=== PATIENT | female | born 1930 | race Caucasian/White ===

== ENCOUNTER 2019-08-06 06:27 | Emergency (ER) | payer OTHER ==
[2019-08-06 07:02] LABS: Absolute Lymphocytes (CBC) 1.1 K/uL (0.7-4.9); Basophils % 0.8 % (0-1.3); Hematocrit 38.4 % (36.0-45.0); Lymphocytes % 13.9 % (15.3-44.8); MPV 7.9 fL (7.6-11.3); RBC Red Blood Cell Count 4.27 M/uL (3.86-4.86)
[2019-08-06 07:07] LABS: Protime INR 0.94
[2019-08-06 07:22] LABS: Albumin 3.8 g/dL (3.4-5.0); Bilirubin Direct 0.2 mg/dL (0-0.2); Bilirubin Total 0.5 mg/dL (0.2-1.0); Magnesium 2.5 mg/dL (1.8-2.4); Potassium 4.3 mmol/L (3.5-5.1)
--- NOTE | 2019-08-06 08:09 | RAD REPORT ---
EXAM DESCRIPTION: CT - Head Brain Wo Cont - 08/06/2019 7:38 am CLINICAL HISTORY: MENTAL STATUS CHANGE Headache, drowsiness COMPARISON: Head Brain Wo Cont dated 11/04/2017; Head Brain Wo Cont dated 10/21/2017 TECHNIQUE: All CT scans are performed using dose optimization technique as appropriate and may inclu de automated exposure control or mA/KV adjustment according to patient size. 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 The paranasal sinuses and mastoids are clear. The calvarium is intact. IMPRESSION: No acute intracranial abnormality.
--- NOTE | 2019-08-06 08:17 | RAD REPORT ---
EXAM DESCRIPTION: RAD - Chest Single View - 08/06/2019 7:06 am CLINICAL HISTORY: COUGH Chest pain. COMPARISON: Chest Single View dated 01/16/2018; Chest Single View dated 10/27/2017; Abdomen 1 View ([facility]) dated 10/25/2017; Chest Single View dated 10/21/2017 FINDINGS: Portable technique limits examination quality. The lungs are grossly clear. The right hemidiaphragm is mildly elevated, chronic. The heart is modera tely enlarged in size. No displaced fractures.
[2019-08-06 08:24] LABS: Urine Bacteria NONE SEEN /HPF (<20); Urine Culture Reflex Order NOT NEEDED; Urine Mucus SLIGHT /HPF (NONE SEEN); Urine RBC <5 /HPF (NONE SEEN)
--- NOTE | 2019-08-06 09:48 | ER ---
Nurse's Notes [facility] Name: Aurora Hendrickson Age: 89 yrs Sex: Female : 1930 Arrival Date: 08/06/2019 Time: 06:34 Bed 6 Private MD: Diagnosis: Altered mental status, unspecified;Dementia in other diseases classified elsewhere with behavioral disturbance Presentation: 08/06 06:43 Presenting complaint: Child states: Daughter states receiving phone call from [facility] [address], where patient resides; Stated patient was combative with staff, seemed confused, unknown if patient may be experiencing UTI; Daughter states she was told that patient was uncooperative with staff. Transition of care: [facility]. Onset of symptoms was August 06, 2019. Risk Assessment: Do you want to hurt yourself or someone else? Patient reports no desire to harm self or others. Initial Sepsis Screen: Does the patient meet any 2 criteria? No. Patient's initial sepsis screen is negative. Does the patient have a suspected source of infection? No. Patient's initial sepsis screen is negative. Care prior to arrival: None. 06:43 Method Of Arrival: Wheelchair lp1 06:43 Acuity: SHAREE 3 lp1 Triage Assessment: 06:54 General: Appears in no apparent distress. Behavior is calm. Pain: Denies pain. Neuro: lp1 Level of Consciousness is awake, obeys commands, confused, Oriented to person, place. Historical: - Allergies: 06:54 Demerol; lp1 06:54 Zofran; lp1 - Home Meds: 06:54 acetaminophen-codeine 300-30 mg Oral tab 1 tab every 6 hours [Active]; alprazolam 0.25 lp1 mg Oral tab twice a day [Active]; alprazolam 0.5 mg Oral tab every 6 hours [Active]; aspirin 325 mg oral TbEC once daily [Active]; atorvastatin Calcium 1 tab PO every night at bedtime 40 mg nightly [Active]; diltiazem HCl 30 mg oral tab 1 tab daily [Active]; furosemide 20 mg Oral tab 1 tab once daily [Active]; gabapentin 100 mg oral cap 1 caps 3 times per day [Active]; lactulose 10 gram/15 mL (15 mL) Oral soln 30 mL Every Other Day [Active]; levothyroxine 25 mcg tab 1 tab once daily [Active]; lisinopril 5 mg oral tab 1 tab once daily [Active]; magnesium oxide 400 mg Oral tab twice a day [Active]; meclizine 25 mg Oral tab 1 tab 4 times per day [Active]; melatonin 3 mg oral tab nightly [Active]; metoprolol tartrate 25 mg Oral tab 1 tab 2 times per day [Active]; morphine 15 mg Oral TbER 1 tab daily [Active]; nitroglycerin 0.4 mg SL subl 1 tab every 5 minutes [Active]; Protonix 40 mg Oral TbEC 1 tab once daily [Active]; potassium chloride 10 mEq Oral TbER 1 tab once daily [Active]; topiramate 25 mg oral tab nightly [Active]; Vitamin B-6 50 mg Oral tab daily [Active]; - PMHx: 06:54 Constipation; Chronic pain; Dementia; GERD; Hypertension; Depression; Hyperlipidemia; lp1 - PSHx: 06:54 Back surgery; lp1 - Immunization history:: Adult Immunizations up to date. - Social history:: Smoking status: Patient/guardian denies using tobacco. - Ebola Screening: : No symptoms or risks identified at this time. Screenin:58 Abuse screen: Denies threats or abuse. Denies injuries from another. Nutritional rr5 screening: No deficits noted. Tuberculosis screening: No symptoms or risk factors identified. Fall Risk Secondary diagnosis (15 points) dementia, IV access (20 points). Mental Status- Overestimates/Forgets Limitations (15 pts.). Total Matos Fall Scale indicates High Risk Score (45 or more points). Fall prevention measures have been instituted. Side Rails Up X 2 Placed Close to Nursing Station Frequent Obs/Assessments Occuring Family Present and informed to notify staff if the need to leave the bedside As available patient and family educated on Fall Prevention Program and Strategies. Assessment: 07:10 General: Appears in no apparent distress. comfortable, well developed, Behavior is sv cooperative, appropriate for age, anxious. Pain: Denies pain. Neuro: Level of Consciousness is awake, alert, obeys commands, confused, Oriented to person, place, Moves all extremities. Full function Speech is normal. Cardiovascular: Patient's skin is warm and dry. Pulses are 3+ in right radial artery and left radial artery Edema is 2+ to left midcalf and right midcalf. Respiratory: Respiratory effort is even, unlabored, Respiratory pattern is regular, symmetrical. Derm: Skin is pink, warm \T\ dry. Musculoskeletal: Range of motion: intact in all extremities. 08:10 Reassessment: Patient appears in no apparent distress at this time. No changes from sv previously documented assessment. Patient and/or family updated on plan of care and expected duration. Pain level reassessed. Patient is alert, oriented x 3, equal unlabored respirations, skin warm/dry/pink. 09:04 Reassessment: pt assisted to bed kimbrough, diaper changed, linens changed, pt transported to [facility] via stretcher, daughter remains at bedside. 10:15 Reassessment: Patient appears in no apparent distress at this time. No changes from sv previously documented assessment. Patient and/or family updated on plan of care and expected duration. Pain level reassessed. Patient is alert, oriented x 3, equal unlabored respirations, skin warm/dry/pink. Vital Signs: 06:45 BP 126 / 60; Pulse 89; Resp 18; Temp 98.1; Pulse Ox 98% on R/A; Weight 96.16 kg; Pain lp1 0/10; 07:20 BP 123 / 96; Pulse 74; Resp 16; Pulse Ox 96% on R/A; sv 08:10 BP 107 / 36; Pulse 68; Resp 18; Pulse Ox 97% ; sv 08:56 BP 123 / 67; Pulse 84; Resp 18; Pulse Ox 98% ; sv ED Course: 06:34 Patient arrived in ED. em1 06:35 Gunner Watts PA is PHCP. jr8 06:35 Geovanny Lee MD is Attending Physician. jr8 06:45 Triage completed. lp1 06:46 Arm band placed on. lp1 06:55 Patient has correct armband on for positive identification. Pulse ox on. NIBP on. lp1 06:55 Inserted saline lock: 20 gauge in left forearm, using aseptic technique. Blood rr5 collected. 07:07 XRAY Chest (1 view) In Process Unspecified. EDMS 07:16 Maritza Adan, ALONSO is Primary Nurse. sv 07:16 Straight cath inserted, using sterile technique, 16 Fr. Specimen obtained. Returned sv clear yellow urine. Patient tolerated well. 07:21 Awaiting lab results, Awaiting radiology results. Awaiting re-evaluation by ER provider.sv 07:[address] via stretcher. sv 07:25 Urine Dipstick--Ancillary (enter results) Sent. sv 07:39 CT Head Brain wo Cont In Process Unspecified. EDMS 09:28 US Extremity Venous W Compression Pravin In Process Unspecified. EDMS 10:15 No provider procedures requiring assistance completed. IV discontinued, intact, sv bleeding controlled, No redness/swelling at site. Pressure dressing applied. Administered Medications: No medications were administered Output: 07:17 Urine: 200ml (Straight Cath); Total: 200ml. sv Outcome: 09:47 Discharge ordered by . jr8 10:16 Discharged to home via wheelchair, with family. sv 10:16 Condition: stable 10:16 Discharge instructions given to patient, family, Instructed on discharge instructions, follow up and referral plans. Demonstrated understanding of instructions, follow-up care. 10:16 Patient left the ED. sv Signatures: Dispatcher [employer] Maritza Collier RN RN sv Mary Grace Waldrop, RN Pedrito Buchanan em1 Breanna Vinson RN RN lp1 Gunner Watts PA PA jr8 Julius Whitley, RN RN rr5
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
--- NOTE | 2019-08-06 09:57 | RAD REPORT ---
EXAM DESCRIPTION: US - Extrem Venous W Compress Pravin - 08/06/2019 9:44 am CLINICAL HISTORY: Swelling;Pain Bilateral leg edema and swelling. COMPARISON: Extremity Venous Uni Ltd dated 12/30/2018 TECHNIQUE: Real-time sonographic interrogation of the left and right lower extremity deep venous sys tems was performed. FINDINGS: Normal compressibility, flow augmentation, phasic flow and spontaneous flow is identified in both the left and right lower extremity deep venous systems. IMPRESSION: No sonographic evidence of left or right lower extremity deep venous thrombosis.
[2019-08-06 10:31] VITALS: TEMP 98.1
[2019-08-06 10:34] VITALS: BP 123/67; O2SAT 98
[2019-08-06 15:21] LABS: Urine Blood NEGATIVE (NEG); Urine Glucose NEGATIVE (NEG); Urine Protein NEGATIVE (NEG); Urine Specific Gravity 1.015 (1.005-1.030)
--- NOTE | 2019-08-07 10:36 | EKG ---
Test Date: 2019-08-06 Test Time: 07:02:14 Senior Product Development Scientist: RR MEASUREMENT RESULTS: Intervals: Rate: 76 NM: 158 QRSD: 70 QT: 380 QTc: 427 Jay: P: 74 NM: 158 QRS: 22 T: 57 INTERPRETIVE STATEMENTS: Sinus rhythm with premature atrial complexes Low voltage QRS Cannot rule out Anterior infarct, age undetermined Abnormal ECG Compared to ECG 01/16/2018 07:34:41 Atrial premature complex(es) now present Myocardial infarct finding still present Electronically Signed On 08-07-19 10:32:02 CDT by Caleb Benitez
== END 2019-08-06 10:16 | disposition home or self-care (01) ==
LOC: ER 06:27
DX: F03.90 Unspecified dementia, unspecified severity, without behavioral disturbance, psychotic disturbance, mood disturbance, and anxiety (principal); K21.9 Gastro-esophageal reflux disease without esophagitis; I10 Essential (primary) hypertension; E78.5 Hyperlipidemia, unspecified; Z88.6 Allergy status to analgesic agent
CPT/HCPCS: 36415; 51702; 70450; 71045; 80048; 80076; 81003; 81015; 83735; 83880; 85025; 85610; 93005; 93970; 99284

== ENCOUNTER 2019-12-18 05:45 | Inpatient (IN) | payer OTHER ==
[2019-12-18] MEDS ORDERED: PROMETHAZINE INJ 25 MG/ML AMP ONE (06:15)
[2019-12-18] MEDS ORDERED: FAMOTIDINE 20 MG/2 ML VIAL IV ONE (06:16)
[2019-12-18] MEDS ORDERED: MORPHINE 2 MG/ML SYR ONE (06:16)
[2019-12-18] MEDS ORDERED: METRONIDAZOLE 500mg IVPB 500 MG/100 ML BAG IV ONE ×3 (06:42→15:47)
[2019-12-18] MEDS ORDERED: Ciprofloxacin 200mg IV 200 MG/100 ML IV.SOLN. IV ONE (06:42)
--- NOTE | 2019-12-18 06:55 | EDPHYS ---
Physician Documentation [facility] Name: Aurora Hendrickson Age: 89 yrs Sex: Female : 1930 Arrival Date: 12/18/2019 Time: 05:[address] Private MD: Omar Luis HPI: 12/18 06:07 This 89 yrs old Female presents to ER via EMS with complaints of Abdominal sonia Pain. 06:07 The patient presents with abdominal pain in the upper abdomen, in the lower abdomen. sonia Onset: The symptoms/episode began/occurred 1 day(s) ago. The symptoms do not radiate. Associated signs and symptoms: none. The symptoms are described as constant, crampy. Severity of pain: At its worst the pain was moderate severe in the emergency department the pain is unchanged. The patient has not experienced similar symptoms in the past. Historical: - Allergies: 05:59 Demerol; bb 05:59 Zofran; bb - Home Meds: 05:59 alprazolam 0.5 mg oral tab 1 tab [Active]; acetaminophen-codeine 300-30 mg Oral tab 1 bb tab every 6 hours [Active]; aspirin 325 mg Oral TbEC once daily [Active]; atorvastatin Calcium 1 tab PO every night at bedtime 40 mg nightly [Active]; diltiazem HCl 30 mg Oral tab 1 tab daily [Active]; furosemide 20 mg Oral tab 1 tab once daily [Active]; gabapentin 100 mg Oral cap 1 caps 3 times per day [Active]; lactulose 10 gram/15 mL (15 mL) Oral soln 30 mL Every other day [Active]; levothyroxine 25 mcg tab 1 tab once daily [Active]; lisinopril 5 mg Oral tab 1 tab once daily [Active]; magnesium oxide 400 mg Oral tab twice a day [Active]; meclizine 25 mg Oral tab 1 tab 4 times per day [Active]; metoprolol tartrate 25 mg Oral tab 1 tab 2 times per day [Active]; metoprolol succinate oral oral [Active]; morphine 15 mg Oral TbER 1 tab daily [Active]; nitroglycerin 0.4 mg SL subl 1 tab every 5 minutes [Active]; Protonix 40 mg Oral TbEC 1 tab once daily [Active]; potassium chloride 10 mEq Oral TbER 1 tab once daily [Active]; topiramate 25 mg Oral tab nightly [Active]; Vitamin B-6 50 mg Oral tab daily [Active]; tizanidine oral oral [Active]; - PMHx: 05:59 Chronic pain; constipation; Dementia; Depression; GERD; Hyperlipidemia; Hypertension; bb - Immunization history:: Adult Immunizations up to date. - Coronavirus screen:: The patient has NOT traveled to [place], [place], or [place] in the past 14 days. Proceed with normal triage process as indicated. - Social history:: Smoking status: unknown. - Family history:: not pertinent. - Ebola Screening: : No symptoms or risks identified at this time. ROS: 06:07 Constitutional: Negative for fever, chills, and weight loss, Eyes: Negative for injury, sonia pain, redness, and discharge, ENT: Negative for injury, pain, and discharge, Neck: Negative for injury, pain, and swelling, Cardiovascular: Negative for chest pain, palpitations, and edema, Respiratory: Negative for shortness of breath, cough, wheezing, and pleuritic chest pain, Back: Negative for injury and pain, : Negative for injury, bleeding, discharge, and swelling, MS/Extremity: Negative for injury and deformity, Skin: Negative for injury, rash, and discoloration, Neuro: Negative for headache, weakness, numbness, tingling, and seizure, Psych: Negative for depression, anxiety, suicide ideation, homicidal ideation, and hallucinations, Allergy/Immunology: Negative for hives, rash, and allergies, Endocrine: Negative for neck swelling, polydipsia, polyuria, polyphagia, and marked weight changes, Hematologic/Lymphatic: Negative for swollen nodes, abnormal bleeding, and unusual bruising. 06:07 Abdomen/GI: Positive for abdominal pain, abdominal cramps, abdominal distension, of the right upper quadrant, left upper quadrant, right lower quadrant and left lower quadrant. Exam: 06:07 Constitutional: This is a well developed, well nourished patient who is awake, alert, sonia and in no acute distress. Head/Face: Normocephalic, atraumatic. Eyes: Pupils equal round and reactive to light, extra-ocular motions intact. Lids and lashes normal. Conjunctiva and sclera are non-icteric and not injected. Cornea within normal limits. Periorbital areas with no swelling, redness, or edema. ENT: Nares patent. No nasal discharge, no septal abnormalities noted. Tympanic membranes are normal and external auditory canals are clear. Oropharynx with no redness, swelling, or masses, exudates, or evidence of obstruction, uvula midline. Mucous membranes moist. Neck: Trachea midline, no thyromegaly or masses palpated, and no cervical lymphadenopathy. Supple, full range of motion without nuchal rigidity, or vertebral point tenderness. No Meningismus. Chest/axilla: Normal chest wall appearance and motion. Nontender with no deformity. No lesions are appreciated. Cardiovascular: Regular rate and rhythm with a normal S1 and S2. No gallops, murmurs, or rubs. Normal PMI, no JVD. No pulse deficits. Respiratory: Lungs have equal breath sounds bilaterally, clear to auscultation and percussion. No rales, rhonchi or wheezes noted. No increased work of breathing, no retractions or nasal flaring. Back: No spinal tenderness. No costovertebral tenderness. Full range of motion. Female : Normal external genitalia. Skin: Warm, dry with normal turgor. Normal color with no rashes, no lesions, and no evidence of cellulitis. MS/ Extremity: Pulses equal, no cyanosis. Neurovascular intact. Full, normal range of motion. Neuro: Awake and alert, GCS 15, oriented to person, place, time, and situation. Cranial nerves II-XII grossly intact. Motor strength 5/5 in all extremities. Sensory grossly intact. Cerebellar exam normal. Normal gait. Psych: Awake, alert, with orientation to person, place and time. Behavior, mood, and affect are within normal limits. 06:07 Abdomen/GI: Inspection: distension, Bowel sounds: normal, Palpation: moderate abdominal tenderness, in the right upper quadrant, left upper quadrant, right lower quadrant and left lower quadrant. Vital Signs: 05:59 BP 118 / 96; Pulse 69; Resp 18 S; Temp 98.1(O); Pulse Ox 96% on R/A; Weight 100 kg (R); bb Pain 6/10; 07:31 BP 96 / 45; Pulse 51; Resp 17; Pulse Ox 96% on R/A; tw2 08:50 BP 139 / 63; Pulse 65; Resp 22; Pulse Ox 96% on R/A; tw2 09:50 BP 137 / 66; Pulse 51; Resp 17; Pulse Ox 96% on R/A; tw2 10:28 BP 134 / 60; Pulse 43; Resp 16; Pulse Ox 96% on R/A; tw2 Procedures: 08:29 Central Line: the site was prepped with Betadine, in sterile fashion, a triple lumen [facility] catheter was inserted, in the right femoral vein, in 3 attempts. placement was verified, by blood return, the site was dressed with Tegaderm, using sterile technique, the patient tolerated the procedure, well. MDM: 05:51 Patient medically screened. [facility] 06:10 Data reviewed: vital signs, nurses notes, lab test result(s), EKG, radiologic studies, [facility] CT scan, plain films. 12/18 06:07 Order name: Basic Metabolic Panel; Complete Time: 10:33 [facility] 12/18 06:07 Order name: CBC with Diff; Complete Time: 10:33 [facility] 12/18 06:07 Order name: LFT's; Complete Time: 10:33 [facility] 12/18 06:07 Order name: Magnesium; Complete Time: 10:33 [facility] 12/18 06:07 Order name: NT PRO-BNP; Complete Time: 10:33 [facility] 12/18 06:07 Order name: PT-INR; Complete Time: 08:57 [facility] 12/18 06:07 Order name: Troponin (emerg Dept Use Only); Complete Time: 10:33 [facility] 12/18 06:07 Order name: Lipase; Complete Time: 10:34 [facility] 12/18 06:24 Order name: Stool Culture [facility] 12/18 06:24 Order name: Fecal Leukocyte Stain [facility] 12/18 07:44 Order name: CBC with Automated Diff [facility] 12/18 07:44 Order name: CBC with Automated Diff [facility] 12/18 07:44 Order name: Comprehensive Metabolic Panel [facility] 12/18 07:44 Order name: Comprehensive Metabolic Panel [facility] 12/18 07:44 Order name: Lactate [facility] 12/18 07:44 Order name: Lactate [facility] 12/18 07:44 Order name: Magnesium [facility] 12/18 07:44 Order name: Magnesium [facility] 12/18 07:44 Order name: Procalcitonin [facility] 12/18 07:44 Order name: Procalcitonin; Complete Time: 10:34 [facility] 12/18 07:44 Order name: Protime (+INR) [facility] 12/18 07:44 Order name: Protime (+INR) [facility] 12/18 07:44 Order name: PTT, Activated Partial Thromb [facility] 12/18 07:44 Order name: PTT, Activated Partial Thromb [facility] 12/18 07:47 Order name: Urinalysis [facility] 12/18 08:25 Order name: Type And Screen [facility] 12/18 08:25 Order name: Lactate [facility] 12/18 08:32 Order name: Urine Culture [facility] 12/18 08:40 Order name: Urine Dipstick--Ancillary (enter results) 12/18 09:06 Order name: Lactate; Complete Time: 10:34 [facility] 12/18 06:07 Order name: XRAY Chest (1 view); Complete Time: 08:57 [facility] 12/18 06:07 Order name: EKG; Complete Time: 06:07 [facility] 12/18 06:07 Order name: Cardiac monitoring; Complete Time: 06:58 [facility] 12/18 06:07 Order name: EKG - Nurse/Tech; Complete Time: 06:58 [facility] 12/18 06:07 Order name: IV Saline Lock; Complete Time: 08:49 [facility] 12/18 06:07 Order name: Labs collected and sent; Complete Time: 08:49 [facility] 12/18 06:07 Order name: O2 Per Protocol; Complete Time: 06:09 [facility] 12/18 06:07 Order name: O2 Sat Monitoring; Complete Time: 06:09 [facility] 12/18 06:07 Order name: Suresh; Complete Time: 06:57 [facility] 12/18 07:34 Order name: CT ANGIO ABD/PELVIS W CONTRAST; Complete Time: 10:34 [facility] 12/18 07:44 Order name: CONS Physician Consult [facility] 12/18 07:44 Order name: NPO [facility] 12/18 08:25 Order name: Central Line Kit; Complete Time: 08:42 [facility] 12/18 09:21 Order name: Manual Differential; Complete Time: 10:33 [facility] 12/18 09:40 Order name: Type and Screen [facility] 12/18 09:41 Order name: Urine Dipstick-Ancillary; Complete Time: 10:34 EDMS Administered Medications: 08:30 Drug: Pepcid 20 mg Route: IVP; Site: right forearm; tw2 08:51 Follow up: Response: No adverse reaction tw2 08:32 Drug: Phenergan 12.5 mg Route: IVP; Site: right femoral; tw2 09:00 Follow up: Response: No adverse reaction; Nausea is decreased tw2 08:34 Drug: morphine 2 mg Route: IVP; Site: right femoral; tw2 09:00 Follow up: Response: No adverse reaction; Pain is decreased; RASS: Drowsy (-1) tw2 08:42 Drug: ProTONIX 80 mg Route: IVP; Site: right femoral; tw2 09:26 Follow up: Response: No adverse reaction tw2 08:45 Drug: Rocephin 1 grams Route: IV; Rate: per protocol; Site: right femoral; tw2 08:50 Follow up: Response: No adverse reaction; IV Status: Completed infusion tw2 08:48 Drug: Flagyl 500 mg Volume: 100 ml; Route: IVPB; Rate: 200 ml/hr; Infused Over: 30 tw2 mins; Site: right femoral; 09:20 Follow up: Response: No adverse reaction; IV Status: Completed infusion tw2 08:50 Drug: NS 0.9% 1000 ml Route: IV; Rate: 125 ml/hr; Site: right femoral; tw2 10:59 Follow up: IV Status: Infusion continued upon admission tw2 09:06 Drug: Cipro 400 mg Volume: 200 ml; Route: IVPB; Infused Over: 60 mins; Site: right tw2 femoral; 10:10 Follow up: Response: No adverse reaction; IV Status: Completed infusion tw2 10:28 Drug: ProTONIX 8 mg/hr Route: IV; Rate: 25 ml/hr; Site: right femoral; tw2 10:59 Follow up: IV Status: Infusion continued upon admission tw2 Disposition: 12/18/19 06:55 Hospitalization ordered by Zeinab Overton for Inpatient Admission. Preliminary diagnosis are Abdominal tenderness, Diarrhea, unspecified, Dementia in other diseases classified elsewhere, Gastrointestinal hemorrhage, unspecified, Hypotension. - Bed requested for Telemetry/MedSurg (Inpatient). - Status is Inpatient Admission. ss - Condition is Fair. - Problem is new. - Symptoms have improved. UTI on Admission? No Signatures: Dispatcher [employer] Carmela Day RN RN Omar Romero MD MD cha Therrien, Shelly, CLOTH WINDER-C CLOTH WINDER-Csnw Lissy Tee, RN RN bb Bess Jackson RN RN ss Madina Miranda RN RN tw2 Corrections: (The following items were deleted from the chart) 08:28 06:55 Hospitalization Ordered by Zeinab Overton MD for Inpatient Admission. Preliminary [facility] diagnosis is Abdominal tenderness; Diarrhea, unspecified; Dementia in other diseases classified elsewhere. Bed requested for Telemetry/MedSurg (Inpatient). Status is Inpatient Admission. Condition is Fair. Problem is new. Symptoms have improved. UTI on Admission? No. sonia 08:29 08:28 12/18/2019 06:55 Hospitalization Ordered by Zeinab Overton MD for Inpatient soina Admission. Preliminary diagnosis is Abdominal tenderness; Diarrhea, unspecified; Dementia in other diseases classified elsewhere; Gastrointestinal hemorrhage, unspecified. Bed requested for Telemetry/MedSurg (Inpatient). Status is Inpatient Admission. Condition is Fair. Problem is new. Symptoms have improved. UTI on Admission? No. sonia 13:09 08:29 12/18/2019 06:55 Hospitalization Ordered by Zeinab Overton MD for Inpatient ss Admission. Preliminary diagnosis is Abdominal tenderness; Diarrhea, unspecified; Dementia in other diseases classified elsewhere; Gastrointestinal hemorrhage, unspecified; Hypotension. Bed requested for Telemetry/MedSurg (Inpatient). Status is Inpatient Admission. Condition is Fair. Problem is new. Symptoms have improved. UTI on Admission? No. sonia 16:14 13:09 12/18/2019 06:55 Hospitalization Ordered by Zeinab Overton MD for Inpatient dw Admission. Preliminary diagnosis is Abdominal tenderness; Diarrhea, unspecified; Dementia in other diseases classified elsewhere; Gastrointestinal hemorrhage, unspecified; Hypotension. Bed requested for [facility] ER HOLD. Status is Inpatient Admission. Condition is Fair. Problem is new. Symptoms have improved. UTI on Admission? No. ss 18:13 16:14 12/18/2019 06:55 Hospitalization Ordered by Zeinab Overton MD for Inpatient ss Admission. Preliminary diagnosis is Abdominal tenderness; Diarrhea, unspecified; Dementia in other diseases classified elsewhere; Gastrointestinal hemorrhage, unspecified; Hypotension. Bed requested for Telemetry/MedSurg (Inpatient). Status is Inpatient Admission. Condition is Fair. Problem is new. Symptoms have improved. UTI on Admission? No. dw
--- NOTE | 2019-12-18 06:55 | ER ---
Nurse's Notes [facility] Name: Aurora Hendrickson Age: 89 yrs Sex: Female : 1930 Arrival Date: 12/18/2019 Time: 05:[address] Private MD: Diagnosis: Abdominal tenderness;Diarrhea, unspecified;Dementia in other diseases classified elsewhere;Gastrointestinal hemorrhage, unspecified;Hypotension Presentation: 12/18 05:53 Presenting complaint: EMS states: they were toned out for report of pt having abdominal bb pain pt is poor historian does not remember details. Transition of care: patient was not received from another setting of care. Onset of symptoms was December 18, 2019. Risk Assessment: Do you want to hurt yourself or someone else? Patient reports no desire to harm self or others. Initial Sepsis Screen: Does the patient meet any 2 criteria? No. Patient's initial sepsis screen is negative. Does the patient have a suspected source of infection? No. Patient's initial sepsis screen is negative. Care prior to arrival: None. 05:53 Method Of Arrival: EMS: [facility] bb 05:53 Acuity: SHAREE 3 bb Historical: - Allergies: 05:59 Demerol; bb 05:59 Zofran; bb - Home Meds: 05:59 alprazolam 0.5 mg oral tab 1 tab [Active]; acetaminophen-codeine 300-30 mg Oral tab 1 bb tab every 6 hours [Active]; aspirin 325 mg Oral TbEC once daily [Active]; atorvastatin Calcium 1 tab PO every night at bedtime 40 mg nightly [Active]; diltiazem HCl 30 mg Oral tab 1 tab daily [Active]; furosemide 20 mg Oral tab 1 tab once daily [Active]; gabapentin 100 mg Oral cap 1 caps 3 times per day [Active]; lactulose 10 gram/15 mL (15 mL) Oral soln 30 mL Every other day [Active]; levothyroxine 25 mcg tab 1 tab once daily [Active]; lisinopril 5 mg Oral tab 1 tab once daily [Active]; magnesium oxide 400 mg Oral tab twice a day [Active]; meclizine 25 mg Oral tab 1 tab 4 times per day [Active]; metoprolol tartrate 25 mg Oral tab 1 tab 2 times per day [Active]; metoprolol succinate oral oral [Active]; morphine 15 mg Oral TbER 1 tab daily [Active]; nitroglycerin 0.4 mg SL subl 1 tab every 5 minutes [Active]; Protonix 40 mg Oral TbEC 1 tab once daily [Active]; potassium chloride 10 mEq Oral TbER 1 tab once daily [Active]; topiramate 25 mg Oral tab nightly [Active]; Vitamin B-6 50 mg Oral tab daily [Active]; tizanidine oral oral [Active]; - PMHx: 05:59 Chronic pain; constipation; Dementia; Depression; GERD; Hyperlipidemia; Hypertension; bb - Immunization history:: Adult Immunizations up to date. - Coronavirus screen:: The patient has NOT traveled to [place], [place], or [place] in the past 14 days. Proceed with normal triage process as indicated. - Social history:: Smoking status: unknown. - Family history:: not pertinent. - Ebola Screening: : No symptoms or risks identified at this time. Screenin:02 Abuse screen: Denies threats or abuse. Denies injuries from another. Nutritional aa1 screening: No deficits noted. Tuberculosis screening: No symptoms or risk factors identified. Fall Risk None identified. Assessment: 06:02 General: Appears in no apparent distress. uncomfortable, obese, Behavior is aa1 cooperative, appropriate for age, restless. Pain: Complains of pain in abdomen Pain began 2-3 days ago. Is continuous. Neuro: Level of Consciousness is awake, alert, obeys commands, Oriented to person, place, time, situation, Moves all extremities. Respiratory: Airway is patent Respiratory effort is even, unlabored, Respiratory pattern is regular, symmetrical. GI: Abdomen is obese, Bowel sounds diminished in abdomen diffusely Abd is soft X 4 quads Abdomen is tender to palpation X 4 quads. Patient currently denies diarrhea, vomiting. : No signs and/or symptoms were reported regarding the genitourinary system. EENT: No signs and/or symptoms were reported regarding the EENT system. Derm: Skin is intact, is healthy with good turgor, Skin is pink, warm \T\ dry. Musculoskeletal: Circulation, motion, and sensation intact. Capillary refill < 3 seconds. 07:31 Reassessment: Patient appears in no apparent distress at this time. No changes from tw2 previously documented assessment. Patient and/or family updated on plan of care and expected duration. Pain level reassessed. 07:40 Reassessment: Dr. Werner at bedside performing central line at this. tw2 08:22 Reassessment: Central line placement took additional time than anticipated. blood drawn tw2 and sent to lab. pt medicated as ordered. 09:30 Reassessment: Patient appears in no apparent distress at this time. No changes from tw2 previously documented assessment. Patient and/or family updated on plan of care and expected duration. Pain level reassessed. 10:29 Reassessment: Patient appears in no apparent distress at this time. No changes from tw2 previously documented assessment. Patient and/or family updated on plan of care and expected duration. Pain level reassessed. Vital Signs: 05:59 BP 118 / 96; Pulse 69; Resp 18 S; Temp 98.1(O); Pulse Ox 96% on R/A; Weight 100 kg (R); bb Pain 6/10; 07:31 BP 96 / 45; Pulse 51; Resp 17; Pulse Ox 96% on R/A; tw2 08:50 BP 139 / 63; Pulse 65; Resp 22; Pulse Ox 96% on R/A; tw2 09:50 BP 137 / 66; Pulse 51; Resp 17; Pulse Ox 96% on R/A; tw2 10:28 BP 134 / 60; Pulse 43; Resp 16; Pulse Ox 96% on R/A; tw2 ED Course: 05:50 Patient arrived in ED. ds1 05:51 Omar Werner MD is Attending Physician. sonia 05:55 Triage completed. bb 05:59 Arm band placed on Patient placed in an exam room, on a stretcher, on pulse oximetry. bb 06:02 Patient has correct armband on for positive identification. Bed in low position. Call aa1 light in reach. Pulse ox on. NIBP on. Warm blanket given. 06:28 XRAY Chest (1 view) In Process Unspecified. EDMS 06:40 Suresh cath inserted, using sterile technique, 18 Fr., by me, balloon inflated, returned cm6 cloudy urine. Patient tolerated well. 06:54 Zeinab Overton MD is Hospitalizing Provider. sonia 06:58 Missed attempt(s): 22 gauge in left forearm. Bleeding controlled, band aid applied, aa1 catheter tip intact. 07:05 Madina Miranda RN is Primary Nurse. tw2 07:05 Missed attempt(s): 22 gauge in right antecubital area. Bleeding controlled, band aid tw2 applied, catheter tip intact. 07:25 Missed attempt(s): 22 gauge in left wrist. jl7 07:30 Missed attempt(s): 24 gauge in left hand. jl7 07:40 Assisted provider with central line placement. Set up central line tray. Triple lumen tw2 line placed in right femoral. Line placed by Omar Werner MD Placement verified by blood return, Dressed with Tegaderm, Blood was collected. Patient tolerated poorly. Before procedure, did Practitioner(s) obtain informed consent? Yes. Patient \T\ family education about procedure, CLABSI prevention and S/S of infection? Yes. 08:05 Radiology exam delayed due to lab results not completed at this time. IV insertion sj attempt and/or patient not having appropriate IV at this time. 10:43 Patient admitted, IV remains in place. tw2 Administered Medications: 08:30 Drug: Pepcid 20 mg Route: IVP; Site: right forearm; tw2 08:51 Follow up: Response: No adverse reaction tw2 08:32 Drug: Phenergan 12.5 mg Route: IVP; Site: right femoral; tw2 09:00 Follow up: Response: No adverse reaction; Nausea is decreased tw2 08:34 Drug: morphine 2 mg Route: IVP; Site: right femoral; tw2 09:00 Follow up: Response: No adverse reaction; Pain is decreased; RASS: Drowsy (-1) tw2 08:42 Drug: ProTONIX 80 mg Route: IVP; Site: right femoral; tw2 09:26 Follow up: Response: No adverse reaction tw2 08:45 Drug: Rocephin 1 grams Route: IV; Rate: per protocol; Site: right femoral; tw2 08:50 Follow up: Response: No adverse reaction; IV Status: Completed infusion tw2 08:48 Drug: Flagyl 500 mg Volume: 100 ml; Route: IVPB; Rate: 200 ml/hr; Infused Over: 30 tw2 mins; Site: right femoral; 09:20 Follow up: Response: No adverse reaction; IV Status: Completed infusion tw2 08:50 Drug: NS 0.9% 1000 ml Route: IV; Rate: 125 ml/hr; Site: right femoral; tw2 10:59 Follow up: IV Status: Infusion continued upon admission tw2 09:06 Drug: Cipro 400 mg Volume: 200 ml; Route: IVPB; Infused Over: 60 mins; Site: right tw2 femoral; 10:10 Follow up: Response: No adverse reaction; IV Status: Completed infusion tw2 10:28 Drug: ProTONIX 8 mg/hr Route: IV; Rate: 25 ml/hr; Site: right femoral; tw2 10:59 Follow up: IV Status: Infusion continued upon admission tw2 Outcome: 06:55 Decision to Hospitalize by Provider. sonia 10:43 Admitted to ER Hold. [facility] see [facility] for further documentation. tw2 10:43 Condition: stable 10:43 Instructed on the need for admit. 18:13 Patient left the ED. ss Signatures: Dispatcher [employer] EDMS Cheyenne Cordoba RN RN aa1 Omar Werner MD MD cha Jones, Sola Aguiar ds1 Lissy Tee RN RN bb Bess Jackson RN RN ss Madina Miranda RN RN tw2 Liang Urias RN RN jl7 Shaina Muñoz 6
[2019-12-18] MEDS ORDERED: NA CHLORIDE 0.9% 1,000 ML ONE ×3 (07:03→15:47)
[2019-12-18] MEDS ORDERED: ACETAMINOPHEN 500 MG TAB PO PRN (07:32)
[2019-12-18] MEDS ORDERED: LIDOCAINE 1% MPF 30 ML VIAL ONE (07:59)
--- NOTE | 2019-12-18 08:32 | RAD REPORT ---
EXAM DESCRIPTION: RAD - Chest Single View - 12/18/2019 6:25 am CLINICAL HISTORY: ABDOMINAL DISTENTION COMPARISON: Chest Single View dated 08/06/2019 TECHNIQUE: AP portable chest image was obtained 12/18/2019 6:25 am . FINDINGS: Lungs are clear. Retrocardiac left base assessment is limited by body habitus, portable te chnique and shallow inspiration. No gross change from the comparison. Low lung volumes accentuate the interstitial pattern. Heart and vasculature are normal. No measurable pleural effusion and no pneumo thorax. No acute bony abnormality seen. No acute aortic findings suspected. IMPRESSION: No acute cardiopulmonary process.
[2019-12-18 08:40] LABS: Absolute Lymphocytes (CBC) 0.8 K/uL (0.7-4.9); Basophils % 0.3 % (0-1.3); Hematocrit 38.6 % (36.0-45.0); Lymphocytes % 8.1 % (15.3-44.8); MPV 8.6 fL (7.6-11.3); RBC Red Blood Cell Count 4.31 M/uL (3.86-4.86)
[2019-12-18 08:48] LABS: Protime INR 1.02
[2019-12-18] MEDS ORDERED: CEFTRIAXONE/SWI 1gm 1 GM/10 ML SYR ONE (08:59)
[2019-12-18] MEDS ORDERED: CIPROFLOXACIN 400mg IV 400 MG/200 ML BAG IV ONE (08:59)
[2019-12-18] MEDS ORDERED: PANTOPRAZOLE 40 MG INJ ONE (08:59)
[2019-12-18 09:01] LABS: Albumin 3.5 g/dL (3.4-5.0); Bilirubin Direct 0.2 mg/dL (0-0.2); Bilirubin Total 0.8 mg/dL (0.2-1.0); Magnesium 2.1 mg/dL (1.8-2.4); Potassium 3.7 mmol/L (3.5-5.1); Protein, Total 6.6 g/dL (6.4-8.2); Troponin (Emerg Dept Use Only) 0.04 ng/mL (0.0-0.045)
[2019-12-18 09:20] LABS: Blood Morphology Comment NOT SEEN (NOT SEEN); Platelet Estimate ADEQ
[2019-12-18 09:40] LABS: Urine Blood NEGATIVE (NEG); Urine Glucose NEGATIVE (NEG); Urine Protein NEGATIVE (NEG); Urine Specific Gravity 1.025 (1.005-1.030); Urine pH 5.5 (5.0-7.0)
--- NOTE | 2019-12-18 10:19 | RAD REPORT ---
EXAM DESCRIPTION: CT - CT ANGIO ABD/PELVIS W CONTRAST - 12/18/2019 9:43 am CLINICAL HISTORY: Abdominal pain, hypertension, possible mesenteric ischemia COMPARISON: None. TECHNIQUE: Dynamically enhanced 3 mm thick images of the lower chest, abdomen, and pelvis were obtai lorena during administration of approximately 150mL Isovue 370 IV contrast. Sagittal and coronal reconst ruction images were generated and reviewed. Exam utilizes a protocol to evaluate entire course of the abdominal and lower thoracic aorta. All CT scans are performed using dose optimization technique as appropriate and may include automated exposure control or mA/KV adjustment according to patient size. FINDINGS: Aorta is normal in diameter with no dissection or other acute aortic findings. Reconstruct ion images show no significant findings. No mass or infiltrate in the lower lung parenchyma. No pleural thickening, pleural effusion or pneumo thorax. Mild atherosclerotic changes are present in the celiac artery without stenosis. Superior and inferior mesenteric arteries show no suspicious findings. Bilateral renal arteries also unremarkable. Bilater al common iliac, external iliac and internal iliac arteries show no suspicious findings. Liver, splee n and pancreas show no suspicious findings. Renal function is symmetric. No hydronephrosis. Exam suff ers from respiratory motion degradation. This limits ability to evaluate for small areas of pyeloneph ritis. Both kidneys have lobulated contours. A solid mass not suspected. No bowel wall thickening or edema. No CT findings of mesenteric ischemia. Patient has prominent sigmo id diverticulosis without diverticulitis. No free air, free fluid or inflammatory stranding. No mass or bulky lymphadenopathy. Right femoral venous access catheter is in place. Prominent bony degenerative changes are present. Advanced degenerative disc disease and borderline sp inal stenosis at L2-3. L3-S1 fusion changes are present with posterior decompression. No gross eviden ce for an acute abnormality. Central canal detail is inherently limited. Gallbladder is absent. No biliary tree dilatation seen. IMPRESSION: Negative CT scan of the abdominal aorta and iliac vasculature. Mesenteric vasculature unremarkable with no mesenteric ischemia findings. Prominent sigmoid diverticulosis without diverticulitis. No acute GI process seen. Lobulated kidneys present with cortical thinning. No gross abnormality seen. However, the amount of m otion degradation precludes an accurate assessment for possible pyelonephritis.
[2019-12-18] MEDS: PANTOPRAZOLE INJ 80 MG in NA CHLORIDE 0.9% 250 ML IV SCH ×3 (10:28→19:28)
[2019-12-18 10:57] VITALS: BMI 36.6
[2019-12-18] MEDS: NA CHLORIDE 0.9% 1,000 ML IV SCH ×2 (10:58→19:28)
[2019-12-18] MEDS ORDERED: ENOXAPARIN 40 MG/0.4 ML SQ ONE (11:09)
[2019-12-18] MEDS: ENOXAPARIN 40 MG/0.4 ML SQ SCH (11:57)
[2019-12-18] MEDS: METRONIDAZOLE 500mg IVPB 500 MG/100 ML BAG IV SCH ×3 (11:57→23:31)
--- NOTE | 2019-12-18 12:48 | P.HP ---
Certification for Inpatient Patient admitted to: Inpatient With expected LOS: >2 Midnights Patient will require the following post-hospital care: None Practitioner: I am a practitioner with admitting privileges, knowledge of patient current condition, hospital course, and medical plan of care. Services: Services provided to patient in accordance with Admission requirements found in Title 42 Section 412.3 of the Code of Federal Regulations Patient History Date of Service: 12/18/19 Reason for admission: ABDOMINAL PAIN/ DIARRHEA / FEVER History of Present Illness: PATIENT IS AN 89-YEAR-OLD FEMALE WHO CAME TO HOSPITAL WITH SEVERE ABDOMINAL PAIN. PAIN WAS PROGRESSIVE THROUGHOUT TODAY. THE PATIENT HAS BEEN HAVING DIARRHEA OVER THE LAST COUPLE OF DAYS. PATIENT LIVES AT [facility]. SHE HAD SOME PRIOR GI ISSUES BUT HER COLONOSCOPIES HAVE NOT REVEALED ANY ABNORMAL FINDINGS. THERE WAS CONCERN THAT SHE MAY HAVE SOME INFLAMMATORY BOWEL DISEASE. PATIENT CAME INTO THE HOSPITAL AND WAS SENT OVER BY THE [facility]. SHE WAS HAVING SEVERE TENDERNESS ON ABDOMINAL EXAMINATION. SHE IS GETTING IV FLUIDS. SHE WILL GET ANTIEMETICS. WILL GET STOOL STUDIES. SHE WILL BE ADMITTED FOR FURTHER OBSERVATION. Allergies meperidine [From Demerol] Allergy (Verified 10/30/17 14:57) Nausea/Vomiting metoclopramide [From Reglan] Allergy (Verified 10/30/17 14:57) Itching adhesive tape Adverse Reaction (Verified 01/16/18 14:14) Itching Home Medications: Morphine Sulfate [Morphine Sulfate ER] 15 mg PO TID 10/05/16 Thyroid Tab [[place] Thyroid*] 15 mg PO DAILY 10/05/16 Pantoprazole [Protonix Tab*] 40 mg PO DAILY #30 tab 10/06/16 Melatonin [Melatonin*] 3 mg PO BEDTIME 10/17/17 Topiramate [Topamax*] 25 mg PO DAILY 10/17/17 Aspirin [Durlaza] 162.5 mg PO DAILY #30 cap.er.24h 10/23/17 Atorvastatin Calcium [Lipitor] 40 mg PO BEDTIME #30 tab 10/23/17 Ensure High Protein 240 ml PO BIDP PRN #60 can 10/30/17 Metoprolol Tartrate [Lopressor*] 25 mg PO BID 10/31/17 Magnesium Oxide [Mag 0X*] 400 mg PO BID #60 tab 11/19/17 Nitroglycerin [Nitrostat*] 0.4 mg SL Q4HR PRN #30 tab 11/19/17 Diltiazem Tab [Cardizem Tab*] 30 mg PO DAILY #30 tab 11/20/17 Gabapentin [Neurontin*] 100 mg PO TID #90 cap 11/20/17 Furosemide [Lasix*] 20 mg PO DAILY 01/16/18 Lactulose 15 ml PO DAILY 01/16/18 Loperamide HCl [Anti-Diarrhea] 1 tab PO Q12HP PRN 01/16/18 Ondansetron [Zuplenz] 4 mg PO Q4HP PRN 01/16/18 Potassium Chloride [Klor-Con Sprinkle] 10 meq PO DAILY 01/16/18 Quetiapine [Seroquel*] 25 mg PO DAILY 01/16/18 Tizanidine HCl [Zanaflex] 4 mg PO TIDP PRN 01/16/18 - Past Medical/Surgical History Has patient received pneumonia vaccine in the past: Yes Diabetic: No -: Hypertension -: Hypothyroidism -: GERD -: Chronic pain -: Depression -: Neuropathy -: Migraine headache -: Chronic dilation of biliary tree -: Bilateral knee surgery -: Back surgery -: Cholecystectomy -: Appendectomy -: toe implant Psychosocial/ Personal History: The patient currently lives at an assisted living facility. She is a . - Family History Mother Notes: alzhiemers - Social History Smoking Status: Unknown if ever smoked Review of Systems 10-point ROS is otherwise unremarkable Physical Examination - Vital Signs Temperature: 99 F Blood Pressure: 134/69 Pulse: 51 Respirations: 16 Pulse Ox (%): 97 - Physical Exam General: Alert, Cooperative, Moderate distress, Confused HEENT: Atraumatic, Normocephalic Neck: Supple, 2+ carotid pulse no bruit, JVD not distended, No Thyromegaly, No LAD Respiratory: Clear to auscultation bilaterally, Normal air movement Cardiovascular: Regular rate/rhythm, Normal S1 S2, No murmurs Gastrointestinal: Soft and benign, No guarding, Absent bowel sounds, Distended, Tenderness, Rebound Musculoskeletal: No clubbing, No swelling, No tenderness Neurological: Normal gait, Normal speech, Normal strength at 5/5 x4 extr, Normal tone, Sensation intact, Cranial nerves 3-12 intact Lymphatics: No axilla or inguinal lymphadenopathy Assessment & Plan - Problems (Diagnosis) (1) Abdominal pain Current Visit: Yes Status: Acute (2) Alzheimer's dementia Current Visit: Yes Status: Acute (3) Diarrhea Current Visit: Yes Status: Acute Qualifiers: Diarrhea type: presumed infectious Qualified Code(s): R19.7 - Diarrhea, unspecified (4) Chronic pain Onset Date: 10/17/17 Current Visit: No Status: Chronic Qualifiers: (5) Depression Current Visit: No Status: Chronic Qualifiers: Depression Type: major depressive disorder (6) GERD (gastroesophageal reflux disease) Onset Date: 10/17/17 Current Visit: No Status: Chronic Qualifiers: (7) Hyperlipidemia Onset Date: 01/17/18 Current Visit: No Status: Chronic Qualifiers: (8) Hypertension Onset Date: 10/22/17 Current Visit: No Status: Chronic Qualifiers: (9) Hypothyroidism Onset Date: 10/17/17 Current Visit: No Status: Chronic Qualifiers: - Plan PLAN: 1. IV FLUIDS AND IV ANTIBIOTICS 2. STOOL STUDIES 3. CT SCAN OF THE ABDOMEN 4. PAIN CONTROL 5. MONITOR ELECTROLYTES 6. REPEAT ABDOMINAL FILM IF PAIN WORSENS TO RULE OUT PERFORATION 7. GI AND DVT PROPHYLAXIS Discharge Plan: Home Plan to discharge in: Greater than 2 days - Advance Directives Does patient have a Living Will: No Does patient have a Durable POA for Healthcare: Yes - Code Status/Comfort Care Code Status Assessed: Yes Code Status: Full Code Critical Care: No Time Spent Managing PTS Care (In Minutes): 45
--- NOTE | 2019-12-18 13:46 | EKG ---
Test Date: 2019-12-18 Test Time: 06:28:32 Director Of Financial Planning: JINA MEASUREMENT RESULTS: Intervals: Rate: 61 HI: 146 QRSD: 66 QT: 440 QTc: 442 [place]: P: 63 HI: 146 QRS: -16 T: 38 INTERPRETIVE STATEMENTS: Normal sinus rhythm Low voltage QRS Cannot rule out Anterior infarct, age undetermined Abnormal ECG Compared to ECG 08/06/2019 07:02:14 Atrial premature complex(es) no longer present Myocardial infarct finding still present Electronically Signed On 12-18-19 13:45:37 RESPIRATORY CLINICIAN by Caleb Benitez
[2019-12-18] MEDS ORDERED: Levofloxacin500mg IV 500 MG/100 ML BAG IV ONE (15:46)
[2019-12-18] MEDS ORDERED: KCL 20 MEQ/100 mL IVPB 20 MEQ/100 ML BAG IV SCH (16:00)
[2019-12-18] MEDS ORDERED: Levofloxacin500mg IV 500 MG/100 ML BAG IV SCH (18:00)
--- NOTE | 2019-12-18 18:30 | P.PN ---
Date of Service: 12/18/19 Patient seen and examined. She still complaining of abdominal pain. She denies diarrhea or bloating. Abdominal pain is apparently chronic. CTA abdomen and pelvis: No significant vascular disease. History of Esophagitis, esophageal dysmotility, hiatal hernia, gastritis, gastric ulcers. Abdomen not distended, mild diffuse tenderness. Pain expression out of proportion to tenderness elicited on physical exams. Plan: Continue IV antibiotics IV proton Clear liquid diet. Serial abdominal examination.
[2019-12-18] MEDS: ONDANSETRON 4 MG/2 ML VIAL IV PRN (19:35)
[2019-12-18 22:47] LABS: Urine Appearance CLEAR; Urine Bilirubin NEGATIVE (NEG); Urine Blood 3+ (NEG); Urine Color YELLOW; Urine Glucose NEGATIVE (NEG); Urine Protein 1+ (NEG); Urine Specific Gravity >=1.030 (1.005-1.030); Urine Urobilinogen 0.2 mg/dL (0.2-1.0); Urine pH 5.5 (5.0-7.0)
[2019-12-18 23:37] LABS: Urine Microscopic Reflex ORDER UMIC
[2019-12-18 23:54] LABS: Urine Bacteria 20-50 /HPF (<20); Urine RBC 20-50 /HPF (NONE SEEN)
[2019-12-18 23:56] LABS: Urine Culture Reflex Order NOT NEEDED
[2019-12-19] MEDS: ONDANSETRON 4 MG/2 ML VIAL IV PRN (01:15)
[2019-12-19] MEDS: MORPHINE 4 MG/ML SYR IV PRN ×4 (01:15→23:33)
--- NOTE | 2019-12-19 04:52 | CON ---
Date of Consultation: 12/18/2019 Brief History Of Present Illness: Patient is an 89-year-old female who was brought to the hospital with abdominal pain progressing approximately last night and throughout the day yesterday. She had been having diarrhea over the last several days too. She is currently convalescent at the [facility]. She has had some prior GI issues and colonoscopies have not been diagnostic at that point. She had an EGD back in 2016, which did show some ulceration at that point and other similar f indings. There was concern that she may have some inflammatory bowel disease, but it was not confirm ed on any of her endoscopy. The patient of note refuses to allow me to examine her in any former fas hion and refuses to answer any questions, but is verbal in her refusal. She simply tells me not to a sk her any questions and that she does not want to talk to me even upon entry into the room. As such much of the information is obtained from the chart and I spoke with her daughter who is medical mikki r of gas welder. Past Medical History: Significant for hypertension, hypothyroidism, GERD, chronic pain, depression, neuropathy, migraines, chronic dilatation of the biliary tree, dementia/Alzheimer dementia. She has had a CVA. Past Surgical History: Includes bilateral knee surgery, back surgery, cholecystectomy, appendectomy, toe surgery. Allergies: TO DEMEROL, REGLAN, AND ADHESIVE TAPES. Home Medications: Include morphine, Carson Thyroid, Protonix, melatonin, Topamax, aspirin, Lipitor, Ensure high-protein mixture, Lopressor, Mag-Ox, Nitrostat, Cardizem, Neurontin, Lasix, lactulose, lop eramide, Zofran, Klor-Con, Seroquel, and Zanaflex. Review of Systems: A 10-point review of systems unable to obtain. Social History: Unable to obtain. Physical Examination: Vital Signs: At the time of my examination, her vital signs were checked by the nurse prior to my en try. Her temperature is 98.3, pulse is 61, respiratory rate 18, blood pressure 173/72, SpO2 97% on r oom air. General: She is awake, alert, and conversive, does not appear oriented; however, she is argumentativ e and refuses to comply with simple questioning. As such I cannot properly assess her mental status. However, she is very alert during the conversation. Therefore, I cannot complete an exam as she daniels s informed me she does not want me to touch her as such, physical exam is impossible at this time. Laboratory Data: Her white blood cell count is 9.5, hemoglobin 12.6, hematocrit of 38.6, platelet co unt is 248, neutrophils 87%. Her PT was 12.0, INR 1.02. Sodium 141, potassium 2.7, chloride 109, ca rbon dioxide 22, BUN 20, creatinine 1.09, glucose 91, lactic acid 1.2, magnesium 2.1, total bilirubin 0.8, direct component 0.2, AST 22, ALT 29, alkaline phosphatase 117. Her proBNP is 2607. Rapid tro ponin was 0.04, lipase is 273. Procalcitonin less than 0.05. UA was negative. Imaging: She had imaging performed which included an abdomen and pelvis, CT angiogram, officially re ad as negative. CT scan of the abdominal aorta and iliac vasculature, mesenteric vasculature unremar kable with no mesenteric ischemic findings. Prominent sigmoid diverticulosis without diverticulitis. No acute GI process seen, lobulated kidney present with cortical thinning. No gross abnormality se en; however, the amount of motion degradation precludes an accurate assessment of possible pyelonephr itis. Assessment And Plan: This is an 89-year-old female who comes in with complaints of abdominal pain an d no obvious imaging finding. 1.She does have a history of some gastrointestinal issues confirmed on upper GI endoscopy and concer n for possible inflammatory bowel disease by report; however, I have been able to review these record s in their entirety and as such, I cannot make an accurate diagnosis at this time. I spoke with the patient's medical power of gas welder and we will revisit the examination tomorrow morning as she does not appear to be in extremis. Continue medical management and I will follow along with you and attem pt another assessment in the morning, but I recommend medical management with IV fluid hydration and continue medical management. I do not find that I am able to accurately give a diagnosis at this time. I will follow along with you. KIARA/TIFFANY Voice ID: [id number] Report ID: [id number]
[2019-12-19] MEDS: METRONIDAZOLE 500mg IVPB 500 MG/100 ML BAG IV SCH ×4 (05:16→23:32)
[2019-12-19] MEDS: PANTOPRAZOLE INJ 80 MG in NA CHLORIDE 0.9% 250 ML IV SCH (05:24)
[2019-12-19 05:27] LABS: Protime INR 1.04
[2019-12-19 07:38] LABS: Basophils % 0.4 % (0-1.3); Hematocrit 33.9 % (36.0-45.0); Lymphocytes % 11.4 % (15.3-44.8); MPV 8.2 fL (7.6-11.3)
[2019-12-19 07:49] LABS: Albumin 2.9 g/dL (3.4-5.0); Bilirubin Total 0.5 mg/dL (0.2-1.0); Magnesium 1.9 mg/dL (1.8-2.4); Potassium 3.8 mmol/L (3.5-5.1); Protein, Total 5.7 g/dL (6.4-8.2)
[2019-12-19] MEDS: ENOXAPARIN 40 MG/0.4 ML SQ SCH (08:00)
[2019-12-19] MEDS ORDERED: KCL 20 MEQ/100 mL IVPB 20 MEQ/100 ML BAG IV SCH (09:00)
--- NOTE | 2019-12-19 09:32 | P.PN ---
Subjective Date of Service: 12/19/19 Chief Complaint: ABDOMINAL PAIN/ DIARRHEA / FEVER Subjective: Improving (Patient states she has no pain today, but she remains confused.) Physical Examination - Vital Signs Temperature: 98.3 F Blood Pressure: 137/56 Pulse: 62 Respirations: 13 Pulse Ox (%): 97 - Physical Exam General: Alert, In no apparent distress, Cooperative, Confused Gastrointestinal: Soft and benign, Non-distended, No ascites, No tenderness, No masses, No rebound, No guarding Assessment And Plan - Current Problems (Diagnosis) (1) Abdominal pain Current Visit: Yes Status: Acute Plan: Patient currently has no abdominal pain or tenderness - start clear liquid diet and advance as tolerated - follow up on stool studies - continue medical management
[2019-12-19] MEDS: NA CHLORIDE 0.9% 1,000 ML IV SCH ×2 (10:40→23:33)
[2019-12-19] MEDS ORDERED: POTASSIUM 25 MEQ EFFERV TAB PO ONE (12:00)
--- NOTE | 2019-12-19 12:26 | P.PN ---
Subjective Date of Service: 12/19/19 Chief Complaint: ABDOMINAL PAIN/ DIARRHEA / FEVER Patient denies any abdominal pain today. She thinks it may be gas causing the pain. Physical Examination - Vital Signs Temperature: 98.0 F Blood Pressure: 148/63 Pulse: 71 Respirations: 13 Pulse Ox (%): 94 - Physical Exam General: In no apparent distress, Confused HEENT: Mucous membr. moist/pink, Sclerae nonicteric Neck: Supple, JVD not distended Respiratory: Clear to auscultation bilaterally, Normal air movement Cardiovascular: No edema, Regular rate/rhythm, Normal S1 S2 Gastrointestinal: Normal bowel sounds, Soft and benign, Non-distended, No tenderness Musculoskeletal: No swelling, No erythema Integumentary: No rashes Neurological: Dementia Assessment And Plan - Current Problems (Diagnosis) (1) Abdominal pain Current Visit: Yes Status: Acute (2) Diarrhea Current Visit: Yes Status: Acute Qualifiers: Diarrhea type: presumed infectious Qualified Code(s): R19.7 - Diarrhea, unspecified (3) Alzheimer's dementia Current Visit: Yes Status: Chronic (4) Chronic pain Onset Date: 10/17/17 Current Visit: No Status: Chronic Qualifiers: (5) Hypothyroidism Onset Date: 10/17/17 Current Visit: No Status: Chronic Qualifiers: (6) History of gastric ulcer Current Visit: Yes Status: Acute - Plan Advanced diet as tolerated. Continue IV hydration. General surgery is following IV Protonix. Urine culture no growth. Fecal leukocytes: Negative, infection not likely. On antibiotics.
[2019-12-19] MEDS ORDERED: SODIUM CHLORIDE 0.9% 10ML INJ IV PRN (12:30)
[2019-12-19] MEDS: PANTOPRAZOLE 40 MG INJ IVP SCH ×2 (12:49→21:12)
[2019-12-19] MEDS ORDERED: Levofloxacin 250mg IV 250 MG/50 ML BAG IV SCH (17:00)
[2019-12-19] MEDS ORDERED: TIZANIDINE 4 MG TABLET PO PRN (17:39)
[2019-12-19] MEDS: ALPRAZOLAM 0.25 MG TABLET PO PRN (18:02)
[2019-12-19] MEDS: METOPROLOL XL 25 MG TAB PO SCH (21:11)
[2019-12-19] MEDS: MAGNESIUM OXIDE 400 MG TAB PO SCH (21:11)
[2019-12-19] MEDS: ATORVASTATIN 40 MG TAB PO SCH (21:11)
[2019-12-19] MEDS: GABAPENTIN 100 MG CAP PO SCH (21:11)
[2019-12-19] MEDS: TOPIRAMATE 25 MG TAB PO SCH (21:11)
[2019-12-19] MEDS: MELATONIN 3 MG TABLET PO PRN (21:11)
[2019-12-20 05:47] LABS: Phosphorus 2.1 mg/dL (2.5-4.9); Potassium 3.6 mmol/L (3.5-5.1)
[2019-12-20] MEDS: METRONIDAZOLE 500mg IVPB 500 MG/100 ML BAG IV SCH (05:49)
[2019-12-20] MEDS: LEVOTHYROXINE SOD 0.025 MG TAB PO SCH (05:49)
[2019-12-20] MEDS: ENOXAPARIN 40 MG/0.4 ML SQ SCH (08:56)
[2019-12-20] MEDS: ASPIRIN EC 325 MG TABLET PO SCH (08:56)
[2019-12-20] MEDS: GABAPENTIN 100 MG CAP PO SCH ×3 (08:56→20:59)
[2019-12-20] MEDS: PANTOPRAZOLE 40 MG INJ IVP SCH ×2 (08:56→21:00)
[2019-12-20] MEDS: MORPHINE *EXTENDED RELEASE* 15 MG TAB PO PRN (08:57)
[2019-12-20] MEDS: lisinopriL 5 MG TAB PO SCH (08:57)
[2019-12-20] MEDS: PYRIDOXINE (VIT B6) 50 MG TAB PO SCH (08:58)
[2019-12-20] MEDS: METOPROLOL XL 25 MG TAB PO SCH ×2 (08:58→21:00)
[2019-12-20] MEDS: POTASS/SODIUM PHOSPHATE 1 PKT POWD.PACK PO SCH ×3 (08:58→11:52)
[2019-12-20] MEDS: MAGNESIUM OXIDE 400 MG TAB PO SCH ×2 (08:59→21:00)
[2019-12-20] MEDS ORDERED: ASPIRIN PO SCH (09:00)
[2019-12-20] MEDS ORDERED: POTASSIUM CL SA 10 MEQ TAB PO ONE (09:00)
[2019-12-20] MEDS: ONDANSETRON 4 MG/2 ML VIAL IV PRN (09:08)
[2019-12-20] MEDS: PETROLATUM WHITE TOP SCH (09:09)
--- NOTE | 2019-12-20 11:34 | P.PN ---
Subjective Date of Service: 12/20/19 Chief Complaint: ABDOMINAL PAIN/ DIARRHEA / FEVER Patient is complaining of abdominal pain today. No report of diarrhea. Physical Examination - Vital Signs Temperature: 97.6 F Blood Pressure: 177/114 Pulse: 56 Respirations: 15 Pulse Ox (%): 97 - Physical Exam General: In no apparent distress, Confused HEENT: Mucous membr. moist/pink Neck: JVD not distended Respiratory: Clear to auscultation bilaterally Cardiovascular: Regular rate/rhythm, Normal S1 S2 Gastrointestinal: Normal bowel sounds, Non-distended, Tenderness (Diffuse) Musculoskeletal: No erythema Integumentary: No rashes Neurological: Normal strength at 5/5 x4 extr, Dementia Assessment And Plan - Current Problems (Diagnosis) (1) Abdominal pain Current Visit: Yes Status: Acute (2) Diarrhea Current Visit: Yes Status: Acute Qualifiers: Diarrhea type: presumed infectious Qualified Code(s): R19.7 - Diarrhea, unspecified (3) Alzheimer's dementia Current Visit: Yes Status: Chronic (4) Chronic pain Onset Date: 10/17/17 Current Visit: No Status: Chronic Qualifiers: (5) Hypothyroidism Onset Date: 10/17/17 Current Visit: No Status: Chronic Qualifiers: (6) History of gastric ulcer Current Visit: Yes Status: Acute - Plan Advanced diet as tolerated. Continue IV hydration. General surgery is following IV Protonix. Urine culture no growth. Fecal leukocytes: Negative, infection not likely. Discontinue antibiotics. Serial abdominal examination GI consult tomorrow.
--- NOTE | 2019-12-20 12:00 | P.PN ---
Subjective Date of Service: 12/20/19 Chief Complaint: ABDOMINAL PAIN/ DIARRHEA / FEVER Subjective: No new changes (Patient states her pain is mostly in the lower abdomen below belly button.) Physical Examination - Vital Signs Temperature: 97.6 F Blood Pressure: 177/114 Pulse: 56 Respirations: 15 Pulse Ox (%): 97 - Physical Exam General: Alert, In no apparent distress, Confused Gastrointestinal: Other (soft, mild suprapubic TTP, ND, no rebound, no gaurding , no peritoneal signs, well healed scars present) Assessment And Plan - Current Problems (Diagnosis) (1) Abdominal pain Current Visit: Yes Status: Acute Plan: Patient currently has no abdominal pain or tenderness - start clear liquid diet and advance as tolerated - follow up on stool studies - continue medical management - abdominal pain possible related to urinary tract infection
[2019-12-20] MEDS: NA CHLORIDE 0.9% 1,000 ML IV SCH (18:19)
[2019-12-20] MEDS: ATORVASTATIN 40 MG TAB PO SCH (20:59)
[2019-12-20] MEDS: TOPIRAMATE 25 MG TAB PO SCH (21:00)
[2019-12-21] MEDS: LEVOTHYROXINE SOD 0.025 MG TAB PO SCH (05:34)
[2019-12-21] MEDS: MORPHINE *EXTENDED RELEASE* 15 MG TAB PO PRN ×2 (05:34→22:14)
[2019-12-21] MEDS: NA CHLORIDE 0.9% 1,000 ML IV SCH ×2 (05:36→15:09)
[2019-12-21 06:08] LABS: Phosphorus 2.4 mg/dL (2.5-4.9); Potassium 3.8 mmol/L (3.5-5.1)
[2019-12-21] MEDS: GABAPENTIN 100 MG CAP PO SCH ×3 (07:55→22:15)
[2019-12-21] MEDS: ENOXAPARIN 40 MG/0.4 ML SQ SCH (07:55)
[2019-12-21] MEDS: lisinopriL 5 MG TAB PO SCH (07:55)
[2019-12-21] MEDS: MAGNESIUM OXIDE 400 MG TAB PO SCH ×2 (07:56→22:15)
[2019-12-21] MEDS: PYRIDOXINE (VIT B6) 50 MG TAB PO SCH (07:56)
[2019-12-21] MEDS: ASPIRIN EC 325 MG TABLET PO SCH (07:56)
[2019-12-21] MEDS: PANTOPRAZOLE 40 MG INJ IVP SCH ×2 (07:57→22:14)
[2019-12-21] MEDS: PETROLATUM WHITE TOP SCH (07:58)
[2019-12-21] MEDS ORDERED: POTASSIUM PHOS IN 0.9 % NACL 15 MMOL/250 ML BAG IV ONE (08:00)
[2019-12-21] MEDS: METOPROLOL XL 25 MG TAB PO SCH ×2 (09:00→22:14)
--- NOTE | 2019-12-21 11:41 | P.DS ---
Admission Date: 12/18/19 Discharge Date: 12/21/19 Disposition: TRANSFER TO [facility] Discharge Condition: GOOD Reason for Admission: ABDOMINAL PAIN/ DIARRHEA / FEVER Consultations: General surgery-Dr. Sosa Procedures: None - Problems (1) Abdominal pain Current Visit: Yes Status: Acute (2) Diarrhea Current Visit: Yes Status: Acute Qualifiers: Diarrhea type: presumed infectious Qualified Code(s): R19.7 - Diarrhea, unspecified (3) Alzheimer's dementia Current Visit: Yes Status: Chronic (4) Chronic pain Onset Date: 10/17/17 Current Visit: No Status: Chronic Qualifiers: (5) Hypothyroidism Onset Date: 10/17/17 Current Visit: No Status: Chronic Qualifiers: (6) History of gastric ulcer Current Visit: Yes Status: Acute Brief History of Present Illness: 89-year-old with a history of dementia with significant memory impairment was transferred from Memory unit to the emergency department due to a complaint of abdominal pain. Patient was reported to have experienced abdominal pain the whole day. She had been previously evaluated and no etiology has been found. There was also report of diarrhea. Tenderness was elicited during abdominal examination in the ED. The patient was admitted for further management. Hospital Course: Patient admitted to the medical floor and treated with supportive measures including IV fluids, pain medications and antibiotics. Stool studies and stool culture were unremarkable. Fecal leukocyte test was negative making infection and inflammatory cause less likely. She was seen and evaluated by general surgery. No further recommendations made. Her CTA abdomen and pelvis was unremarkable. Urine culture yielded mixed growth. Patient was briefly treated with antibiotics. Patient will be discharged and can follow up with Dr. Sosa as an outpatient for colonoscopy. Vital Signs/Physical Exam: Temp Pulse Resp BP Pulse Ox 99.3 F 53 18 144/56 H 91 12/21/19 08:00 12/21/19 08:00 12/21/19 08:00 12/21/19 08:00 12/21/19 08:00 General: In no apparent distress, Confused HEENT: Mucous membr. moist/pink, Sclerae nonicteric Neck: Supple, JVD not distended Respiratory: Clear to auscultation bilaterally, Normal air movement Cardiovascular: No edema, Regular rate/rhythm, Normal S1 S2 Gastrointestinal: Normal bowel sounds, Soft and benign, Non-distended Musculoskeletal: No erythema Neurological: Dementia Laboratory Data at Discharge: WBC 8.4 K/uL (4.3-10.9) 12/19/19 07:20 Hgb 11.1 g/dL (12.0-15.0) L 12/19/19 07:20 Hct 33.9 % (36.0-45.0) L 12/19/19 07:20 Plt Count 213 K/uL (152-406) 12/19/19 07:20 PT 12.3 SECONDS (9.5-12.5) 12/19/19 05:13 INR 1.04 12/19/19 05:13 APTT 18.0 SECONDS (24.3-36.9) L 12/19/19 05:13 Sodium 144 mmol/L (136-145) 12/21/19 05:30 Potassium 3.8 mmol/L (3.5-5.1) 12/21/19 05:30 BUN 16 mg/dL (7-18) 12/21/19 05:30 Creatinine 0.93 mg/dL (0.55-1.3) 12/21/19 05:30 Glucose 77 mg/dL (74-106) 12/21/19 05:30 Phosphorus 2.4 mg/dL (2.5-4.9) L 12/21/19 05:30 Magnesium 1.9 mg/dL (1.8-2.4) 12/19/19 07:20 Total Bilirubin 0.5 mg/dL (0.2-1.0) 12/19/19 07:20 AST 21 U/L (15-37) 12/19/19 07:20 ALT 26 U/L (12-78) 12/19/19 07:20 Alkaline Phosphatase 95 U/L (45-117) 12/19/19 07:20 Lipase 273 U/L (73-393) 12/18/19 08:19 Home Medications: Acetaminophen with Codeine [Tylenol with Codeine #3 Tablet] 1 tab PO Q6HP PRN Aspirin [Aspirin EC 325 MG] 0.5 tab PO DAILY 12/19/19 Atorvastatin Calcium [Lipitor] 40 mg PO BEDTIME 12/19/19 Benzonatate [Tessalon Perle*] 100 mg PO Q8HP 12/19/19 Diltiazem Tab [Cardizem Tab*] 30 mg PO DAILY 12/19/19 Furosemide [Lasix*] 20 mg PO DAILY 12/19/19 Gabapentin [Neurontin*] 100 mg PO TID 12/19/19 Lactulose [Cephulac*] 30 ml PO T,TH,S 12/19/19 Levothyroxine Sodium 25 mcg PO DAILY 12/19/19 Lisinopril [Zestril] 5 mg PO DAILY 12/19/19 Magnesium Oxide [Mag 0X*] 400 mg PO BID 12/19/19 Meclizine HCl 25 mg PO QIDP PRN 12/19/19 Melatonin [Melatonin*] 3 mg PO BEDTIME PRN PRN 12/19/19 Metoprolol Succinate [Toprol Xl*] 25 mg PO BID 12/19/19 Morphine *Extended Release* [MS Contin*] 15 mg PO BIDP PRN 12/19/19 Nitroglycerin [Nitrostat*] 0.4 mg PO Q4HP PRN 12/19/19 Pantoprazole [Protonix Tab*] 40 mg PO DAILY 12/19/19 Petrolatum 41% Oint [Aquaphor] 1 andrea TOP BEDTIME 12/19/19 Petrolatum,White [Vaseline] 1 andrea TOP DAILY 12/19/19 Potassium Chloride [Klor-Con 10] 10 meq PO DAILY 12/19/19 Pyridoxine [Vitamin B-6*] 50 g PO DAILY 12/19/19 Topiramate [Topamax*] 25 mg PO BEDTIME 12/19/19 Diet: AHA Activity: Fall precautions Time spent managing pt's care (in minutes): 40
--- NOTE | 2019-12-21 15:29 | P.PN ---
Subjective Date of Service: 12/21/19 Chief Complaint: ABDOMINAL PAIN/ DIARRHEA / FEVER Subjective: Improving (Patient states she has no abdominal pain) Physical Examination - Vital Signs Temperature: 98.7 F Blood Pressure: 144/56 Pulse: 63 Respirations: 18 Pulse Ox (%): 92 - Physical Exam General: Alert, In no apparent distress, Confused HEENT: Mucous membr. moist/pink Gastrointestinal: Soft and benign, No tenderness, No masses, No rebound, No guarding Assessment And Plan - Current Problems (Diagnosis) (1) Abdominal pain Current Visit: Yes Status: Acute Plan: Patient currently has no abdominal pain or tenderness - advance diet as tolerated - follow up on stool studies - continue medical management - abdominal pain possible related to urinary tract infection
--- NOTE | 2019-12-21 17:38 | P.PN ---
Subjective Date of Service: 12/21/19 Chief Complaint: ABDOMINAL PAIN/ DIARRHEA / FEVER Patient started complaining of abdominal pain and calling for Daddy when she saw me. She was sleeping quietly earlier when I entered her room. No report of diarrhea. Physical Examination - Vital Signs Temperature: 99 F Blood Pressure: 127/70 Pulse: 74 Respirations: 16 Pulse Ox (%): 92 - Physical Exam General: Alert, In no apparent distress, Oriented x3 HEENT: Mucous membr. moist/pink, Sclerae nonicteric Neck: Supple, JVD not distended Respiratory: Clear to auscultation bilaterally, Normal air movement Cardiovascular: No edema, Regular rate/rhythm, Normal S1 S2 Gastrointestinal: Normal bowel sounds, Soft and benign, Non-distended, Tenderness (Patient expressed tenderness when I touched her abdomen. No guarding, no rebound, abdomen was soft.) Musculoskeletal: No erythema Integumentary: No tenderness/swelling Neurological: Other (Confused), Dementia Assessment And Plan - Current Problems (Diagnosis) (1) Abdominal pain Current Visit: Yes Status: Acute (2) Diarrhea Current Visit: Yes Status: Acute Qualifiers: Diarrhea type: presumed infectious Qualified Code(s): R19.7 - Diarrhea, unspecified (3) Alzheimer's dementia Current Visit: Yes Status: Chronic (4) Chronic pain Onset Date: 10/17/17 Current Visit: No Status: Chronic Qualifiers: (5) Hypothyroidism Onset Date: 10/17/17 Current Visit: No Status: Chronic Qualifiers: (6) History of gastric ulcer Current Visit: Yes Status: Acute - Plan Advanced diet as tolerated. Continue IV hydration. Protonix. Urine culture no growth. Fecal leukocytes: Negative. Inflammation/infection less likely. Discontinued antibiotics. Follow up with Dr. Sosa as an outpatient for further evaluation.
[2019-12-21] MEDS: MELATONIN 3 MG TABLET PO PRN (22:14)
[2019-12-21] MEDS: ATORVASTATIN 40 MG TAB PO SCH (22:15)
[2019-12-21] MEDS: TOPIRAMATE 25 MG TAB PO SCH (22:15)
[2019-12-22 04:51] LABS: Absolute Lymphocytes (CBC) 0.8 K/uL (0.7-4.9); Basophils % 0.5 % (0-1.3); Lymphocytes % 9.7 % (15.3-44.8); MPV 8.6 fL (7.6-11.3)
[2019-12-22 04:59] LABS: Phosphorus 1.9 mg/dL (2.5-4.9); Potassium 3.5 mmol/L (3.5-5.1)
[2019-12-22] MEDS: LEVOTHYROXINE SOD 0.025 MG TAB PO SCH (05:32)
[2019-12-22] MEDS: NA CHLORIDE 0.9% 1,000 ML IV SCH ×2 (05:32→17:39)
[2019-12-22] MEDS: lisinopriL 5 MG TAB PO SCH (08:29)
[2019-12-22] MEDS: ENOXAPARIN 40 MG/0.4 ML SQ SCH (08:29)
[2019-12-22] MEDS: MAGNESIUM OXIDE 400 MG TAB PO SCH ×2 (08:29→19:15)
[2019-12-22] MEDS: GABAPENTIN 100 MG CAP PO SCH ×3 (08:29→19:15)
[2019-12-22] MEDS: PANTOPRAZOLE 40 MG INJ IVP SCH (08:29)
[2019-12-22] MEDS: PYRIDOXINE (VIT B6) 50 MG TAB PO SCH (08:30)
[2019-12-22] MEDS: METOPROLOL XL 25 MG TAB PO SCH ×2 (08:30→19:16)
[2019-12-22] MEDS: ASPIRIN EC 325 MG TABLET PO SCH (08:30)
[2019-12-22] MEDS: PETROLATUM WHITE TOP SCH (08:31)
[2019-12-22] MEDS ORDERED: POTASSIUM PHOS IN 0.9 % NACL 15 MMOL/250 ML BAG IV ONE (09:00)
[2019-12-22] MEDS: PANTOPRAZOLE 40MG TABLET PO SCH (15:30)
[2019-12-22] MEDS: MORPHINE *EXTENDED RELEASE* 15 MG TAB PO PRN (15:34)
--- NOTE | 2019-12-22 15:57 | P.PN ---
Subjective Date of Service: 12/22/19 Chief Complaint: ABDOMINAL PAIN/ DIARRHEA / FEVER Subjective: Improving Physical Examination - Vital Signs Temperature: 97.7 F Blood Pressure: 111/67 Pulse: 74 Respirations: 16 Pulse Ox (%): 92 - Physical Exam General: Alert, In no apparent distress, Cooperative Gastrointestinal: Soft and benign, Non-distended, No ascites, No tenderness, No masses, No rebound, No guarding Assessment And Plan - Current Problems (Diagnosis) (1) Abdominal pain Current Visit: Yes Status: Acute Plan: Patient currently has no abdominal pain or tenderness - advance diet as tolerated - follow up on stool studies - continue medical management - abdominal pain possible related to urinary tract infection
--- NOTE | 2019-12-22 17:49 | PN ---
Date of Progress Note: 12/22/2019 Subjective: Patient is seen and examined. Chart reviewed and case discussed with RN. No family at the bedside. Medications list reviewed. Code status is full code. Advanced care planning discussed with patient. Physical Examination: Vital Signs: Temperature 97.9, heart rate 55, blood pressure 134/54, respirations 16, O2 92% on room air. General: Awake, alert, oriented x3. Elderly female, obese. BMI 36. CV: S1, S2. Regular rate and rhythm. Peripheral pulses present. Respiratory: Moving air well bilaterally. No wheezing or stridor. Gastrointestinal: Abdomen is soft, nontender, nondistended. Positive bowel sounds. No hepatomegaly appreciated. Extremities: No clubbing, cyanosis, or edema. Neuro: Cranial nerves 2 through 12 intact grossly. No focal neurological deficit. Speech is normal . Laboratory Data: Potassium 3.5, lactate is 1. WBC 8.3, H and H 10.6 and 32, platelets 166. Urine c ulture growing out mixed teresa. Stool culture shows no salmonella, shigella, or campylobacter. Feca l leukocyte stain, there were no WBCs seen. Assessment: 89-year-old female with. 1.Acute generalized abdominal pain, resolved. Patient does not have any tenderness. Does not compl ain of any abdominal pain, unclear etiology, likely viral enteritis. Fecal leukocyte stain is negati ve. I spoke with Dr. Sosa, he recommends outpatient colonoscopy. WBC count is normal. Lactate i s normal. 2.Acute diarrhea, likely viral. Stool culture did not show any growth. 3.Chronic pain syndrome. 4.Alzheimer dementia. Patient is alert and oriented at this time. 5.Hypothyroidism. Continue home medication. 6.History of gastric ulcer. 7.Hypophosphatemia. We will replace and monitor. Plan: We will advance diet from clear liquids to full liquids and advance as tolerated. If the chloe ent is able to tolerate her diet, she may be discharged for outpatient followup with Dr. Sosa for colonoscopy. We will reach out to family. Daughter apparently was wanting to appeal discharge. Spo ke with Case Management, has not been appealed as of yet. SA/MODL Voice ID: [id number] Report ID: [id number]
[2019-12-22] MEDS: ATORVASTATIN 40 MG TAB PO SCH (19:15)
[2019-12-22] MEDS: MELATONIN 3 MG TABLET PO PRN (19:15)
[2019-12-22] MEDS: ALPRAZOLAM 0.25 MG TABLET PO PRN (19:15)
[2019-12-22] MEDS: MORPHINE 4 MG/ML SYR IV PRN (19:15)
[2019-12-22] MEDS: TOPIRAMATE 25 MG TAB PO SCH (19:15)
[2019-12-22] MEDS: ENSURE HIGH PROTEIN 237 ML CAN PO SCH (19:16)
[2019-12-23] MEDS: MORPHINE 4 MG/ML SYR IV PRN (00:39)
[2019-12-23 04:26] LABS: Phosphorus 1.7 mg/dL (2.5-4.9); Potassium 3.4 mmol/L (3.5-5.1)
[2019-12-23] MEDS ORDERED: KCL 20 MEQ/100 mL IVPB 20 MEQ/100 ML BAG IV SCH (05:00)
[2019-12-23] MEDS: LEVOTHYROXINE SOD 0.025 MG TAB PO SCH (05:17)
[2019-12-23] MEDS: MORPHINE *EXTENDED RELEASE* 15 MG TAB PO PRN (06:24)
[2019-12-23] MEDS: ENOXAPARIN 40 MG/0.4 ML SQ SCH (08:21)
[2019-12-23] MEDS: GABAPENTIN 100 MG CAP PO SCH (08:21)
[2019-12-23] MEDS: ASPIRIN EC 325 MG TABLET PO SCH (08:21)
[2019-12-23] MEDS: PYRIDOXINE (VIT B6) 50 MG TAB PO SCH (08:22)
[2019-12-23] MEDS: lisinopriL 5 MG TAB PO SCH (08:22)
[2019-12-23] MEDS: PANTOPRAZOLE 40MG TABLET PO SCH (08:22)
[2019-12-23] MEDS: METOPROLOL XL 25 MG TAB PO SCH (08:22)
[2019-12-23] MEDS: MAGNESIUM OXIDE 400 MG TAB PO SCH (08:23)
[2019-12-23] MEDS: ENSURE HIGH PROTEIN 237 ML CAN PO SCH (08:23)
[2019-12-23] MEDS: PETROLATUM WHITE TOP SCH (08:24)
[2019-12-23] MEDS ORDERED: DILTIAZEM HCL 30 MG TAB PO SCH (09:00)
[2019-12-23] MEDS ORDERED: POTASSIUM PHOS IN 0.9 % NACL 15 MMOL/250 ML BAG IV ONE (09:00)
[2019-12-23] MEDS ORDERED: DILTIAZEM HCL 60 MG TAB PO SCH (09:00)
--- NOTE | 2019-12-23 10:07 | P.PN ---
Subjective Date of Service: 12/23/19 Chief Complaint: ABDOMINAL PAIN/ DIARRHEA / FEVER Subjective: Improving (Patient sitting up, eating well, no pain, smiling, no complaints) Physical Examination - Vital Signs Temperature: 98.4 F Blood Pressure: 150/72 Pulse: 68 Respirations: 16 Pulse Ox (%): 94 - Physical Exam General: Alert, In no apparent distress, Cooperative, Confused Gastrointestinal: Soft and benign, Non-distended, No ascites, No tenderness, No masses, No rebound, No guarding Assessment And Plan - Current Problems (Diagnosis) (1) Abdominal pain Current Visit: Yes Status: Acute Plan: Patient currently has no abdominal pain or tenderness - tolerating diet well - continue medical management - will sign off for now, please call with any new issues
[2019-12-23 10:28] VITALS: O2SAT 94
[2019-12-23 12:42] VITALS: BP 145/74; TEMP 98.6
--- NOTE | 2019-12-24 02:53 | DS ---
Date of Discharge: 12/23/2019 Consultants: Dr. Sosa, General Surgery. Procedures: None. Admitting Diagnoses: 1.Acute abdominal pain. 2.Alzheimer dementia. 3.Diarrhea. 4.Chronic pain. 5.Depression. 6.Gastroesophageal reflux disease. 7.Hyperlipidemia. 8.Hypertension. 9.Hypothyroidism. Discharge Diagnoses: 1.Acute generalized abdominal pain, resolved, likely viral enteritis. 2.Acute diarrhea, resolved. 3.Chronic pain syndrome. 4.Alzheimer dementia, moderate without behavioral disturbance. 5.History of gastric ulcer. 6.Hypophosphatemia. 7.Essential hypertension, stable. 8.Mixed hyperlipidemia, stable. 9.Major depressive disorder in remission, stable. 10.Gastroesophageal reflux disease without esophagitis, stable. 11.Hypothyroidism, stable. Hospital Course: Patient is an 89-year-old female, who comes in from the [facility] with abdomina l pain, diarrhea, and fever. Patient has had previous GI workup and colonoscopies, but no abnormal f indings. Patient had imaging studies done including CT abdomen, pelvis, and angiogram was negative f or abdominal aorta and iliac vasculature, mesenteric vasculature unremarkable with no mesenteric isch emic findings. Patient was found to have prominent sigmoid diverticulosis without diverticulitis. N o acute GI process was seen. Patient does have borderline spinal stenosis of L2-L3 and has L3-S1 fus ion changes with posterior decompression. Patient was started on IV fluids, IV antibiotics. Culture s were obtained. Stool cultures were negative. Fecal occult stain was negative. Urine culture did not show any growth, showed mixed teresa. Patient had normal white blood cell count. Her lactate was negative. There was no signs of sepsis. She did have electrolyte abnormalities including hypophosp hatemia and hypokalemia, which were corrected. Overall, patient did well. She was seen by Dr. Ermias tavares, General Surgery, did not recommend any surgical intervention at this time. She did recommend out patient colonoscopy. The patient's diet was then advanced and she was able to tolerate a full liquid diet as well as solids the following day, did not have any further nausea, vomiting, or abdominal pa in. She was ambulating well with assist. Patient was then discharged back to nursing facility at [facility] in stable condition. Activity: Fall precautions. Diet: Heart healthy. Followup: Follow up with primary care physician in 2-3 days. Follow up with surgeon, Dr. Sosa in 2 weeks for outpatient colonoscopy. Return to ER for worsening condition. Medications: As per medication reconciliation list. Physical Examination: General: Awake, alert, and oriented to self and place only, confused. CV: S1, S2. Respiratory: Moving air well bilaterally. Abdomen: Abdomen is soft, nontender, nondistended. Positive bowel sounds. Extremities: No clubbing, cyanosis, or edema. Neurologic: Nonfocal. Total time spent discharging the patient was 37 minutes. SA/MODL Voice ID: [id number] Report ID: [id number]
== END 2019-12-23 12:02 | disposition home or self-care (01) | DRG 392 ==
LOC: ER 05:45 → ERHOLD 07:32 → 4TH 17:13
PROVIDERS: ADMIT Hospitalist; ATTEND Hospitalist
DX: A08.4 Viral intestinal infection, unspecified (principal); G89.4 Chronic pain syndrome; G30.9 Alzheimer's disease, unspecified; F02.80 Dementia in other diseases classified elsewhere, unspecified severity, without behavioral disturbance, psychotic disturbance, mood disturbance, and anxiety; E83.39 Other disorders of phosphorus metabolism; I10 Essential (primary) hypertension; E78.2 Mixed hyperlipidemia; F32.9 Major depressive disorder, single episode, unspecified; K21.9 Gastro-esophageal reflux disease without esophagitis; E03.9 Hypothyroidism, unspecified; E87.6 Hypokalemia
CPT/HCPCS: 36415; 51702; 71045; 74174; 80048; 80053; 80076; 81003; 81015; 83605; 83690; 83735; 83880; 84100; 84132; 84145; 84484; 85025; 85610; 85730; 86850; 86900; 86901; 87045; 87046; 87086; 87088; 89055; 93005; 96365; 96367; 96368; 96375; 97112; 97116; 97161; 97530; 99285; C9113; J0696; J0744; J1650; J2270; J2405; J2550; J7030; Q9967

== ENCOUNTER 2020-05-10 00:15 | Emergency (ER) | payer OTHER ==
[2020-05-10 03:02] LABS: Protime INR 0.92
[2020-05-10 03:14] LABS: Absolute Lymphocytes (CBC) 1.3 K/uL (0.7-4.9); Basophils % 0.8 % (0-1.3); Hematocrit 36.1 % (36.0-45.0); Lymphocytes % 17.7 % (15.3-44.8); MPV 7.8 fL (7.6-11.3)
[2020-05-10 03:17] LABS: ALT/SGPT 27 U/L (12-78); AST/SGOT 22 U/L (15-37); Albumin 3.5 g/dL (3.4-5.0); Alkaline Phosphatase 120 U/L (45-117); BUN Blood Urea Nitrogen 26 mg/dL (7-18); Bicarbonate 26 mmol/L (21-32); Bilirubin Direct 0.1 mg/dL (0-0.2); Bilirubin Total 0.4 mg/dL (0.2-1.0); Glucose Level 87 mg/dL (74-106); Potassium 4.5 mmol/L (3.5-5.1); Protein, Total 6.9 g/dL (6.4-8.2); Sodium Level 136 mmol/L (136-145)
[2020-05-10 03:18] LABS: Magnesium 2.4 mg/dL (1.8-2.4); NT PRO-BNP 323 pg/mL (<450); Troponin (Emerg Dept Use Only) < 0.02 ng/mL (0.0-0.045)
[2020-05-10] MEDS ORDERED: ACETAMINOPHEN 325 MG TABLET ONE (04:48)
--- NOTE | 2020-05-10 06:10 | EDPHYS ---
Physician Documentation [facility] Name: Aurora Hendrickson Age: 89 yrs Sex: Female : 1930 Arrival Date: 05/10/2020 Time: 00:21 Bed 7 Private MD: ED Physician Seferino Andujar HPI: 05/10 04:13 This 89 yrs old Female presents to ER via EMS with complaints of Fall. [facility] 04:13 Details of fall: The patient fell from an upright position, while walking. Onset: The [facility] symptoms/episode began/occurred just prior to arrival, today. Associated injuries: The patient sustained injury to the head, contusion, injury to the low back, contusion, pain. 04:14 Severity of symptoms: At their worst the symptoms were mild, earlier today, in the [facility] emergency department the symptoms are unchanged. The patient has experienced similar episodes in the past, several times. Historical: - Allergies: 00:25 Demerol; mg2 00:25 Zofran; mg2 - Home Meds: 00:25 aspirin 325 mg Oral TbEC once daily [Active]; mg2 01:07 acetaminophen-codeine 300-30 mg Oral tab 1 tab every 6 hours [Active]; alprazolam 0.5 mg2 mg Oral tab 1 tab [Active]; atorvastatin Calcium 1 tab PO every night at bedtime 40 mg nightly [Active]; diltiazem HCl 30 mg Oral tab 1 tab daily [Active]; furosemide 20 mg Oral tab 1 tab once daily [Active]; gabapentin 100 mg Oral cap 1 caps 3 times per day [Active]; lactulose 10 gram/15 mL (15 mL) Oral soln 30 mL Every other day [Active]; levothyroxine 25 mcg tab 1 tab once daily [Active]; lisinopril 5 mg Oral tab 1 tab once daily [Active]; magnesium oxide 400 mg Oral tab twice a day [Active]; meclizine 25 mg Oral tab 1 tab 4 times per day [Active]; metoprolol succinate Oral [Active]; metoprolol tartrate 25 mg Oral tab 1 tab 2 times per day [Active]; morphine 15 mg Oral cpER 1 tab daily [Active]; nitroglycerin 0.4 mg SL subl 1 tab every 5 minutes [Active]; potassium chloride 10 mEq Oral cpER 1 tab once daily [Active]; Protonix 40 mg Oral TbEC 1 tab once daily [Active]; tizanidine Oral [Active]; topiramate 25 mg Oral tab nightly [Active]; Vitamin B-6 50 mg Oral tab daily [Active]; - PMHx: 00:25 Chronic pain; constipation; Dementia; Depression; GERD; Hyperlipidemia; Hypertension; mg2 - Immunization history:: Flu vaccine is up to date. - Social history:: Smoking status: Patient denies any tobacco usage or history of. Patient/guardian denies using alcohol, street drugs, IV drugs. - Immunization history: Last tetanus immunization: unknown. ROS: 04:14 Constitutional: Negative for fever, chills, and weight loss, Eyes: Negative for injury, mh7 pain, redness, and discharge, ENT: Negative for injury, pain, and discharge, Neck: Negative for injury, pain, and swelling, Cardiovascular: Negative for chest pain, palpitations, and edema, Respiratory: Negative for shortness of breath, cough, wheezing, and pleuritic chest pain, Abdomen/GI: Negative for abdominal pain, nausea, vomiting, diarrhea, and constipation, : Negative for injury, bleeding, discharge, and swelling, MS/Extremity: Negative for injury and deformity, Skin: Negative for injury, rash, and discoloration, Neuro: Negative for headache, weakness, numbness, tingling, and seizure, Psych: Negative for depression, anxiety, suicide ideation, homicidal ideation, and hallucinations, Allergy/Immunology: Negative for hives, rash, and allergies, Endocrine: Negative for neck swelling, polydipsia, polyuria, polyphagia, and marked weight changes, Hematologic/Lymphatic: Negative for swollen nodes, abnormal bleeding, and unusual bruising. Exam: 04:14 Constitutional: This is a well developed, well nourished patient who is awake, alert, mh7 and in no acute distress. Head/Face: Normocephalic, atraumatic. Eyes: Pupils equal round and reactive to light, extra-ocular motions intact. Lids and lashes normal. Conjunctiva and sclera are non-icteric and not injected. Cornea within normal limits. Periorbital areas with no swelling, redness, or edema. ENT: Nares patent. No nasal discharge, no septal abnormalities noted. Tympanic membranes are normal and external auditory canals are clear. Oropharynx with no redness, swelling, or masses, exudates, or evidence of obstruction, uvula midline. Mucous membranes moist. Neck: Trachea midline, no thyromegaly or masses palpated, and no cervical lymphadenopathy. Supple, full range of motion without nuchal rigidity, or vertebral point tenderness. No Meningismus. Chest/axilla: Normal chest wall appearance and motion. Nontender with no deformity. No lesions are appreciated. Cardiovascular: Regular rate and rhythm with a normal S1 and S2. No gallops, murmurs, or rubs. Normal PMI, no JVD. No pulse deficits. Respiratory: Lungs have equal breath sounds bilaterally, clear to auscultation and percussion. No rales, rhonchi or wheezes noted. No increased work of breathing, no retractions or nasal flaring. Abdomen/GI: Soft, non-tender, with normal bowel sounds. No distension or tympany. No guarding or rebound. No evidence of tenderness throughout. 04:14 Skin: Warm, dry with normal turgor. Normal color with no rashes, no lesions, and no evidence of cellulitis. MS/ Extremity: Pulses equal, no cyanosis. Neurovascular intact. Full, normal range of motion. Neuro: Awake and alert, GCS 15, oriented to person, place, time, and situation. Cranial nerves II-XII grossly intact. Motor strength 5/5 in all extremities. Sensory grossly intact. Cerebellar exam normal. Normal gait. Psych: Awake, alert, with orientation to person, place and time. Behavior, mood, and affect are within normal limits. 04:14 Back: pain, that is mild, of the lumbar area, ROM is normal, normal spinal alignment noted, CVA tenderness, is absent, vertebral tenderness, is appreciated at lumbar area, muscle spasm, is not present, Straight leg raises: of both lower extremities does not illicit pain. 04:14 ECG was reviewed by the Attending Physician. [facility] Vital Signs: 00:21 BP 132 / 55; Pulse 63; Resp 18; Temp 96.9; Pulse Ox 99% on R/A; mg2 02:52 Pulse 58; Resp 18; Pulse Ox 99% on R/A; mg2 03:37 BP 125 / 42; Pulse 58; Resp 18; Pulse Ox 100% on R/A; mg2 06:51 BP 122 / 80; Pulse 60; Resp 18; Pulse Ox 100% on R/A; mg2 [place] Coma Score: 00:28 Eye Response: spontaneous(4). Verbal Response: oriented(5). Motor Response: obeys mg2 commands(6). Total: 15. 03:37 Eye Response: spontaneous(4). Verbal Response: oriented(5). Motor Response: obeys mg2 commands(6). Total: 15. Trauma Score (Adult): 00:28 Eye Response: spontaneous(1); Verbal Response: oriented(1); Motor Response: obeys mg2 commands(2); Systolic BP: > 89 mm Hg(4); Respiratory Rate: 10 to 29 per min(4); Hemant Score: 15; Trauma Score: 12 03:37 Eye Response: spontaneous(1); Verbal Response: oriented(1); Motor Response: obeys mg2 commands(2); Systolic BP: > 89 mm Hg(4); Respiratory Rate: 10 to 29 per min(4); Hemant Score: 15; Trauma Score: 12 MDM: 01:38 Patient medically screened. [facility] 06:06 Differential diagnosis: abrasion, closed head injury, contusion, fracture. Data [facility] reviewed: vital signs, nurses notes, EMS record, old medical records, lab test result(s), cardiac enzymes, CBC, electrolytes, EKG, radiologic studies, CT scan, plain films. Data interpreted: hall monitor: rate is 63 beats/min, rhythm is normal sinus rhythm, regular, Interpretation: normal rate, normal rhythm, Pulse oximetry: on room air is 100 %. Interpretation: normal. Counseling: I had a detailed discussion with the patient and/or guardian regarding: the historical points, exam findings, and any diagnostic results supporting the discharge/admit diagnosis, lab results, radiology results, the need for outpatient follow up, to return to the emergency department if symptoms worsen or persist or if there are any questions or concerns that arise at home. Response to treatment: the patient's symptoms have markedly improved after treatment. 05/10 01:42 Order name: Basic Metabolic Panel; Complete Time: 03:42 [facility] 05/10 01:42 Order name: CBC with Diff; Complete Time: 03:42 [facility] 05/10 01:42 Order name: LFT's; Complete Time: 03:42 [facility] 05/10 01:42 Order name: Magnesium; Complete Time: 03:42 [facility] 05/10 01:42 Order name: NT PRO-BNP; Complete Time: 03:42 [facility] 05/10 01:42 Order name: PT-INR; Complete Time: 03:42 [facility] 05/10 01:42 Order name: Troponin (emerg Dept Use Only); Complete Time: 03:42 [facility] 05/10 01:42 Order name: XRAY Chest (1 view) [facility] 05/10 01:42 Order name: EKG; Complete Time: 01:44 [facility] 05/10 01:42 Order name: Cardiac monitoring; Complete Time: 02:15 [facility] 05/10 01:42 Order name: EKG - Nurse/Tech; Complete Time: 02:15 [facility] 05/10 01:42 Order name: CT Head C Spine [facility] 05/10 01:42 Order name: CT Lumbar Spine Wo Con [facility] 05/10 01:42 Order name: IV Saline Lock; Complete Time: 02:51 [facility] 05/10 01:42 Order name: Labs collected and sent; Complete Time: 02:51 [facility] 05/10 01:42 Order name: O2 Per Protocol; Complete Time: 02:15 [facility] 05/10 01:42 Order name: O2 Sat Monitoring; Complete Time: 02:15 EC:14 Rate is 59 beats/min. Rhythm is regular, Sinus bradycardia. QRS [place] is Normal. SC mh7 interval is normal. QRS interval is normal. QT interval is normal. No Q waves. T waves are Normal. No ST changes noted. Clinical impression: Sinus bradycardia. Administered Medications: 04:47 Drug: Tylenol 650 mg Route: PO; jd3 05:30 Follow up: Response: No adverse reaction mg2 Disposition: 05/10/20 06:10 Discharged to Home. Impression: Fall, Head Contusion, Back Contusion. - Condition is Stable. - Discharge Instructions: Contusion, [id number], Fall Prevention in the Home, [id number]. - Medication Reconciliation Form, Thank You Letter, Antibiotic Education, Prescription Opioid Use form. - Follow up: Private Physician; When: 1 - 2 days; Reason: Worsening of condition, Recheck today's complaints, Re-evaluation by your physician. - Problem is an ongoing problem. - Symptoms have improved. Signatures: Dispatcher [employer] Sai Rivera RN RN [id number] Clifton Quick RN RN mg2 Seferino Andujar MD MD mh7 Corrections: (The following items were deleted from the chart) 06:52 06:10 05/10/2020 06:10 Discharged to Home. Impression: Fall; Head Contusion; Back mg2 Contusion. Condition is Stable. Forms are Medication Reconciliation Form, Thank You Letter, Antibiotic Education, Prescription Opioid Use. Follow up: Private Physician; When: 1 - 2 days; Reason: Worsening of condition, Recheck today's complaints, Re-evaluation by your physician. Problem is an ongoing problem. Symptoms have improved. mh7
--- NOTE | 2020-05-10 06:10 | ER ---
Nurse's Notes [facility] Name: Aurora Hendrickson Age: 89 yrs Sex: Female : 1930 Arrival Date: 05/10/2020 Time: 00:21 Bed 7 Private MD: Diagnosis: Fall;Head Contusion;Back Contusion Presentation: 05/10 00:21 Chief complaint: EMS states: off balance-patient fell from standing position and fell mg2 on her back. sustained pain in the lower back and back of the head. no open wound noted. denies LOC. patient is from [facility]. Coronavirus screen: Proceed with normal triage. Patient denies a cough. Patient denies shortness of breath or difficulty breathing. Patient denies measured and/or subjective temperature greater than 100.4F prior to today's visit. Patient denies travel on a cruise ship or to a country the [facility] currently lists as an affected area. Patient denies contact with known and/or suspected case of COVID-19. Ebola Screen: No symptoms or risks identified at this time. Initial Sepsis Screen: Does the patient meet any 2 criteria? No. Patient's initial sepsis screen is negative. Does the patient have a suspected source of infection? No. Patient's initial sepsis screen is negative. Risk Assessment: Do you want to hurt yourself or someone else? Patient reports no desire to harm self or others. Onset of symptoms was May 10, 2020. 00:21 Method Of Arrival: EMS: [facility] mg2 00:21 Acuity: SHAREE 3 mg2 01:08 Care prior to arrival: None. Mechanism of Injury: Fall from standing position. Trauma mg2 event details: Injury occurred in the [facility], Injury occurred: in an institution. Injury occurred: May 10, 2020. Trauma Activation: Not Applicable Physician: ED Physician; Name: ; Notified At: ; Arrived At: Physician: General Surgeon; Name: ; Notified At: ; Arrived At: Physician: Radiology; Name: ; Notified At: ; Arrived At: Physician: Respiratory; Name: ; Notified At: ; Arrived At: Physician: Lab; Name: ; Notified At: ; Arrived At: Historical: - Allergies: 00:25 Demerol; mg2 00:25 Zofran; mg2 - Home Meds: 00:25 aspirin 325 mg Oral TbEC once daily [Active]; mg2 01:07 acetaminophen-codeine 300-30 mg Oral tab 1 tab every 6 hours [Active]; alprazolam 0.5 mg2 mg Oral tab 1 tab [Active]; atorvastatin Calcium 1 tab PO every night at bedtime 40 mg nightly [Active]; diltiazem HCl 30 mg Oral tab 1 tab daily [Active]; furosemide 20 mg Oral tab 1 tab once daily [Active]; gabapentin 100 mg Oral cap 1 caps 3 times per day [Active]; lactulose 10 gram/15 mL (15 mL) Oral soln 30 mL Every other day [Active]; levothyroxine 25 mcg tab 1 tab once daily [Active]; lisinopril 5 mg Oral tab 1 tab once daily [Active]; magnesium oxide 400 mg Oral tab twice a day [Active]; meclizine 25 mg Oral tab 1 tab 4 times per day [Active]; metoprolol succinate Oral [Active]; metoprolol tartrate 25 mg Oral tab 1 tab 2 times per day [Active]; morphine 15 mg Oral cpER 1 tab daily [Active]; nitroglycerin 0.4 mg SL subl 1 tab every 5 minutes [Active]; potassium chloride 10 mEq Oral cpER 1 tab once daily [Active]; Protonix 40 mg Oral TbEC 1 tab once daily [Active]; tizanidine Oral [Active]; topiramate 25 mg Oral tab nightly [Active]; Vitamin B-6 50 mg Oral tab daily [Active]; - PMHx: 00:25 Chronic pain; constipation; Dementia; Depression; GERD; Hyperlipidemia; Hypertension; mg2 - Immunization history:: Flu vaccine is up to date. - Social history:: Smoking status: Patient denies any tobacco usage or history of. Patient/guardian denies using alcohol, street drugs, IV drugs. - Immunization history: Last tetanus immunization: unknown. Screenin:27 Abuse screen: Denies threats or abuse. Denies injuries from another. Nutritional mg2 screening: No deficits noted. Tuberculosis screening: No symptoms or risk factors identified. Fall risk At risk due to prior history of falls. 01:08 Fall Risk Fall in past 12 months (25 points). mg2 Primary Survey: 00:26 NO uncontrolled hemorrhage observed. A: The patient is alert. Airway: patent, No mg2 supplemental oxygen in use on arrival. Breathing/Chest: Respiratory pattern: regular, Respiratory effort: spontaneous, unlabored, Breath sounds: clear, Chest inspection: symmetrical rise and fall of the chest. Circulation: Skin color: pink. Disability Alert. Exposure/Environment: All clothing and personal items were removed. Forensic evidence collection is not deemed to be indicated at this time. Items placed in patient belonging bag. There is no evidence of uncontrolled external bleeding. A warming method has been applied: A warm blanket has been provided to the patient. 02:52 Reassessment Airway Airway Patent Breathing/Chest Respiratory pattern Regular mg2 Respiratory effort Spontaneous Unlabored Circulation Heart rhythm Sinus [place] Color [place] Disability Alert. Secondary Survey: 00:27 HEENT: No deficits noted. Gastrointestinal: No deficits noted. : No deficits noted. mg2 Musculoskeletal: Circulation, motion, and sensation intact. Capillary refill < 3 seconds, Reports pain in back. Assessment: 00:25 General: Appears in no apparent distress. comfortable, Behavior is calm, cooperative. mg2 Pain: Complains of pain in head and lower back Pain currently is 4 out of 10 on a pain scale. Quality of pain is described as aching, Pain began suddenly. Neuro: Level of Consciousness is awake, alert, obeys commands, Oriented to person, place, time, situation. EENT: No signs and/or symptoms were reported regarding the EENT system. Cardiovascular: Capillary refill < 3 seconds Patient's skin is warm and dry. Respiratory: Airway is patent Respiratory effort is even, unlabored, Respiratory pattern is regular, symmetrical. GI: No signs and/or symptoms were reported involving the gastrointestinal system. : No signs and/or symptoms were reported regarding the genitourinary system. Derm: Skin is intact, is healthy with good turgor, Skin is pink, warm \T\ dry. normal. Musculoskeletal: Circulation, motion, and sensation intact. Capillary refill < 3 seconds, Reports pain in back. 01:09 Reassessment: Jacey Kuldeep- [id number]. mg2 02:15 Reassessment: patient sent to ct scan via stretcher. mg2 03:37 Reassessment: Patient appears in no apparent distress at this time. Patient and/or mg2 family updated on plan of care and expected duration. Pain level reassessed. Patient is alert, oriented x 3, equal unlabored respirations, skin warm/dry/pink. 04:51 Reassessment: Patient appears in no apparent distress at this time. Patient and/or mg2 family updated on plan of care and expected duration. Pain level reassessed. 05:45 Reassessment: daughter Jacey contacted about the condition of the patient. [facility] fran phoned and said that I will call back after 10 mins. 06:06 Reassessment: Ana -nurse of [facility] was called and said to call the daughter to mg2 come and shredder picker the patient to be sent back to the detention. Jacey (ziyad) will come and pick her up in about 30 mins. Vital Signs: 00:21 BP 132 / 55; Pulse 63; Resp 18; Temp 96.9; Pulse Ox 99% on R/A; mg2 02:52 Pulse 58; Resp 18; Pulse Ox 99% on R/A; mg2 03:37 BP 125 / 42; Pulse 58; Resp 18; Pulse Ox 100% on R/A; mg2 06:51 BP 122 / 80; Pulse 60; Resp 18; Pulse Ox 100% on R/A; mg2 Hemant Coma Score: 00:28 Eye Response: spontaneous(4). Verbal Response: oriented(5). Motor Response: obeys mg2 commands(6). Total: 15. 03:37 Eye Response: spontaneous(4). Verbal Response: oriented(5). Motor Response: obeys mg2 commands(6). Total: 15. Trauma Score (Adult): 00:28 Eye Response: spontaneous(1); Verbal Response: oriented(1); Motor Response: obeys mg2 commands(2); Systolic BP: > 89 mm Hg(4); Respiratory Rate: 10 to 29 per min(4); [place] Score: 15; Trauma Score: 12 03:37 Eye Response: spontaneous(1); Verbal Response: oriented(1); Motor Response: obeys mg2 commands(2); Systolic BP: > 89 mm Hg(4); Respiratory Rate: 10 to 29 per min(4); [place] Score: 15; Trauma Score: 12 ED Course: 00:21 Patient arrived in ED. mg2 00:24 Triage completed. mg2 00:28 Patient has correct armband on for positive identification. mg2 00:58 Seferino Andujar MD is Attending Physician. mh7 01:05 Clifton Quick RN is Primary Nurse. mg2 01:06 No provider procedures requiring assistance completed. Patient maintains SpO2 mg2 saturation greater than 95% on room air. 01:08 Arm band placed on. mg2 01:08 Thermoregulation: warm blanket given to patient. mg2 02:10 XRAY Chest (1 view) In Process Unspecified. EDMS 02:45 Inserted saline lock: 22 gauge in right upper arm, using aseptic technique. Blood mg2 collected. 02:47 CT Head C Spine In Process Unspecified. EDMS 02:48 CT Lumbar Spine Wo Con In Process Unspecified. EDMS 06:50 IV discontinued, intact, bleeding controlled, No redness/swelling at site. Pressure mg2 dressing applied. Administered Medications: 04:47 Drug: Tylenol 650 mg Route: PO; jd3 05:30 Follow up: Response: No adverse reaction mg2 Intake: 03:37 PO: 0ml; Total: 0ml. mg2 Outcome: 06:10 Discharge ordered by . albert 06:50 Discharged to detention. Report called to ALONSO Perez mg2 06:50 Condition: good 06:50 Discharge instructions given to patient, family, detention, Instructed on discharge instructions, follow up and referral plans. Demonstrated understanding of instructions. 06:52 Patient's length of stay in the Emergency Department was greater than 2 hours. mg2 06:52 Patient left the ED. mg2 Signatures: Dispatcher [employer] Sai Rivera RN RN jClifton Walker RN RN mg2 Seferino Andujar MD MD mh7
[2020-05-10 07:05] VITALS: TEMP 96.9
[2020-05-10 07:07] VITALS: O2SAT 100
[2020-05-10 07:09] VITALS: BP 122/80
--- NOTE | 2020-05-10 09:59 | EKG ---
Test Date: 2020-05-10 Test Time: 01:56:34 Advisory Software Engineer: MEASUREMENT RESULTS: Intervals: Rate: 59 MS: 160 QRSD: 70 QT: 424 QTc: 419 [place]: P: 78 MS: 160 QRS: 50 T: 62 INTERPRETIVE STATEMENTS: Sinus bradycardia Low voltage QRS Cannot rule out Anterior infarct, age undetermined Abnormal ECG Compared to ECG 12/18/2019 06:28:32 Sinus rhythm no longer present Myocardial infarct finding still present Electronically Signed On 05-10-20 09:58:57 CDT by Caleb Benitez
--- NOTE | 2020-05-11 12:25 | RAD REPORT ---
EXAM DESCRIPTION: CT - CTHCSPWOC - 05/10/2020 7:08 am CLINICAL HISTORY: Fall COMPARISON: None. TECHNIQUE: CT Head and Cervical spine WO contrast on 05/10/2020 1:42 AM CDT This exam was performed according to our departmental dose-optimization program, which includes autom ated exposure control, adjustment of the mA and/or kV according to patient size and/or use of iterati ve reconstruction technique. FINDINGS: Brain: There is no acute hemorrhage, mass effect or midline shift. Danielle-white differentiat ion is preserved. There is no hydrocephalus. There is mild diffuse cerebral atrophy. The calvarium is intact. Orbits and globes are unremarkable. The paranasal sinuses are clear. Mastoid air cells are clear. Cervical Spine: There is no acute fracture. There is grade 1 anterolisthesis of C3 on C4 and grade 1 retrolisthesis of C4 on C5. There is moderate left and mild right-sided facet arthritis. There is mild narrowing of the C4-5 and C6-7 discs. Vertebral body heights are preserved. Soft tissue s are unremarkable. IMPRESSION: No acute postraumatic findings. Electronically signed by: Santo Dorantes MD 05/10/2020 2:56 AM CDT Due to temporary technical issues with the PACS/Fluency reporting system, reports are being signed by the in house radiologist without review as a courtesy to ensure prompt reporting. The interpreting r adiologist is fully responsible for the content of the report.
--- NOTE | 2020-05-11 12:27 | RAD REPORT ---
EXAM DESCRIPTION: CT - Spine Lumbar Wo Con - 05/10/2020 7:09 am CLINICAL HISTORY: 89-year-old female status post fall from standing position. She fell onto her back and complains of pain in lower back and back of head. TECHNIQUE: Multiple high-resolution thin axial CT images were performed through the lumbar spine fol lowed by sagittal and coronal reconstructed images. Images were acquired from T6-T7 through L5. The C T study is performed according to ALARA (as low as reasonably achievable) or ALARA/IMAGE GENTLY, with automatic adjustment of mA and/or kV according to patient size. Performed on: 05/10/2020 at 2: 26 AM COMPARISON: No prior studies were available for comparison. FINDINGS: The lumbar vertebrae are normal in height. There is normal alignment of the vertebrae. T here is multilevel degenerative disc disease with vacuum discs present at multiple levels. There is m oderate disc space narrowing at L2-L3. There is degenerative spurring along the thoracolumbar spine m ost pronounced at L2-L3. There are remote postsurgical changes from L3 through L5. There are laminect terry defects at these levels and there is lateral bony fusion. No definite acute fracture is identifie d. Bone mineralization is diminished. There is normal alignment of the facet joints on the parasagittal images. There are mild to moderate degenerative changes of the lumbar spine. There is no significant canal stenosis. There is no significant neural foraminal stenosis. No acu te soft tissue abnormalities are identified. There is a small hiatal hernia. The visualized lungs are grossly clear. IMPRESSION: 1. No evidence of acute osseous injury involving the visualized thoracolumbar spine. 2. There are degenerative changes of the spine as described above. 3. Postsurgical changes extending from L3 through L5 consistent with laminectomy defects and lateral bony fusion. 4. Small hiatal hernia. 5. No acute soft tissue abnormalities are identified. Electronically signed by: Reyna Bolanos DO 05/10/2020 3:13 AM CDT Due to temporary technical issues with the PACS/Fluency reporting system, reports are being signed by the in house radiologist without review as a courtesy to ensure prompt reporting. The interpreting r adiologist is fully responsible for the content of the report.
--- NOTE | 2020-05-11 14:04 | RAD REPORT ---
EXAM DESCRIPTION: RAD - Chest Single View - 05/10/2020 5:38 am CLINICAL HISTORY: Fall COMPARISON: None. TECHNIQUE: XR CHEST 1 VIEW 05/10/2020 1:42 AM CDT FINDINGS: The heart is enlarged. There is left basilar airspace disease. There is a small left pleur al effusion. There is no pneumothorax. There are no acute osseous findings. IMPRESSION: Left pleural effusion with left basilar airspace disease. Electronically signed by: Santo Dorantes MD 05/10/2020 5:18 AM CDT Due to temporary technical issues with the PACS/Fluency reporting system, reports are being signed by the in house radiologist without review as a courtesy to ensure prompt reporting. The interpreting r adiologist is fully responsible for the content of the report.
== END 2020-05-10 06:52 | disposition home or self-care (01) ==
LOC: ER 00:15
DX: S30.0XXA Contusion of lower back and pelvis, initial encounter (principal); S00.93XA Contusion of unspecified part of head, initial encounter; W19.XXXA Unspecified fall, initial encounter; Y93.01 Activity, walking, marching and hiking; Y92.9 Unspecified place or not applicable; I10 Essential (primary) hypertension; E78.5 Hyperlipidemia, unspecified; F03.90 Unspecified dementia, unspecified severity, without behavioral disturbance, psychotic disturbance, mood disturbance, and anxiety; Z88.5 Allergy status to narcotic agent; Z88.8 Allergy status to other drugs, medicaments and biological substances
CPT/HCPCS: 36415; 70450; 71045; 72125; 72131; 80048; 80076; 83735; 83880; 84484; 85025; 85610; 93005; 99284

== ENCOUNTER 2020-07-05 17:49 | Emergency (ER) | payer OTHER ==
--- NOTE | 2020-07-05 20:12 | RAD REPORT ---
EXAM DESCRIPTION: [facility] Single View07/05/2020 7:50 pm CLINICAL HISTORY: Cough COMPARISON: April 2001 FINDINGS: The lungs appear clear of acute infiltrate. The heart is normal size IMPRESSION: No acute abnormalities displayed
[2020-07-05 20:23] LABS: Protime INR 0.94
[2020-07-05 20:29] LABS: Absolute Lymphocytes (CBC) 0.6 K/uL (0.7-4.9); Basophils % 0.2 % (0-1.3); Hematocrit 39.6 % (36.0-45.0); Lymphocytes % 12.3 % (15.3-44.8); RBC Red Blood Cell Count 4.42 M/uL (3.86-4.86)
[2020-07-05 20:33] LABS: ALT/SGPT 27 U/L (12-78); AST/SGOT 20 U/L (15-37); Albumin 3.3 g/dL (3.4-5.0); Alkaline Phosphatase 107 U/L (45-117); BUN Blood Urea Nitrogen 25 mg/dL (7-18); Bicarbonate 24 mmol/L (21-32); Bilirubin Direct 0.1 mg/dL (0-0.2); Bilirubin Total 0.4 mg/dL (0.2-1.0); Glucose Level 102 mg/dL (74-106); Magnesium 2.5 mg/dL (1.8-2.4); NT PRO-BNP 731 pg/mL (<450); Potassium 4.6 mmol/L (3.5-5.1); Protein, Total 7.1 g/dL (6.4-8.2); Sodium Level 141 mmol/L (136-145); Troponin (Emerg Dept Use Only) < 0.02 ng/mL (0.0-0.045)
--- NOTE | 2020-07-05 21:20 | ER ---
Nurse's Notes [facility] Name: Aurora Hendrickson Age: 89 yrs Sex: Female : 1930 Arrival Date: 07/05/2020 Time: 17:58 Bed 15 Private MD: Diagnosis: Cough Presentation: 07/05 17:50 Chief complaint: EMS states: Pt. is from [facility], they were called out because the rb1 facility said that the pt. was lethargic and has had a productive cough since yesterday, and shortness of breath today. When EMS arrived the pt. was at normal baseline. Has a history of Alzheimers. BP 112/70, P 70, 95% RA, T 97.8. Coronavirus screen: Client denies travel out of the [place] in the last 14 days. Client presents with at least one sign or symptom that may indicate coronavirus-19. Standard/surgical mask placed on the client. Provider contacted for isolation considerations. Ebola Screen: Patient denies travel to an Ebola-affected area in the 21 days before illness onset. Onset of symptoms was July 04, 2020. 17:50 Method Of Arrival: EMS: [place] [id number] 17:50 Acuity: SHAREE 3 rb1 18:00 Initial Sepsis Screen: Does the patient meet any 2 criteria? No. Patient's initial jl7 sepsis screen is negative. Does the patient have a suspected source of infection? No. Patient's initial sepsis screen is negative. Risk Assessment: Do you want to hurt yourself or someone else? Patient reports no desire to harm self or others. Care prior to arrival: None. Transition of care: [facility]. Triage Assessment: 18:00 General: Appears in no apparent distress. uncomfortable, Behavior is agitated, jl7 uncooperative. Pain: Denies pain. Neuro: Level of Consciousness is awake, alert, obeys commands, Oriented to person. Cardiovascular: Patient's skin is warm and dry. Respiratory: Airway is patent Respiratory effort is even, unlabored, Respiratory pattern is regular, symmetrical. GI: No signs and/or symptoms were reported involving the gastrointestinal system. : No signs and/or symptoms were reported regarding the genitourinary system. Derm: Skin is pink, warm \T\ dry. Musculoskeletal: No signs and/or symptoms reported regarding the musculoskeletal system. Historical: - Allergies: 17:50 Demerol; rb1 17:50 Zofran; rb1 - PMHx: 17:50 Chronic pain; constipation; Dementia; Depression; GERD; Hyperlipidemia; Hypertension; rb1 - Immunization history:: Adult Immunizations up to date. - Social history:: Smoking status: Patient denies any tobacco usage or history of. Screenin:55 Abuse screen: Denies threats or abuse. Denies injuries from another. Nutritional jl7 screening: No deficits noted. Tuberculosis screening: No symptoms or risk factors identified. 20:39 Fall Risk IV access (20 points). mg2 Assessment: 19:30 General: Appears in no apparent distress. comfortable, Behavior is calm. Pain: Denies mg2 pain. Neuro: Level of Consciousness is awake, alert, obeys commands, Oriented to person, place, time, situation. Cardiovascular: Capillary refill < 3 seconds Patient's skin is warm and dry. Respiratory: Airway is patent Respiratory effort is even, unlabored, Respiratory pattern is regular, symmetrical. Respiratory: actively coughing. GI: No signs and/or symptoms were reported involving the gastrointestinal system. : No signs and/or symptoms were reported regarding the genitourinary system. EENT: No signs and/or symptoms were reported regarding the EENT system. Derm: Skin is intact, is healthy with good turgor, Skin is pink, warm \T\ dry. normal. Musculoskeletal: Circulation, motion, and sensation intact. Capillary refill < 3 seconds. 19:49 Reassessment: Gisella Horowitz, , [facility]. Please call for dispo. mg2 20:39 Reassessment: Patient appears in no apparent distress at this time. Patient and/or mg2 family updated on plan of care and expected duration. Pain level reassessed. 21:33 Reassessment: ALONSO Obando from [facility] called and updated about the patient. she mg2 will call back about the transportation. 21:34 General: patient refused COVID test. provider and [facility] nurse Gisella also mg2 informed. . 22:44 Reassessment: report given to EMS. mg2 Vital Signs: 18:00 BP 138 / 58; Pulse 58; Resp 14; Temp 97.1; Pulse Ox 95% ; jl7 20:38 BP 130 / 53; Pulse 50; Resp 18; Pulse Ox 95% on R/A; mg2 21:35 BP 112 / 64; Pulse 70; Resp 18; Temp 98; Pulse Ox 97% on R/A; mg2 ED Course: 17:58 Patient arrived in ED. rb1 18:00 Arm band placed on right wrist. jl7 18:03 Triage completed. rb1 18:55 Patient has correct armband on for positive identification. Placed in gown. Bed in low jl7 position. Call light in reach. Side rails up X2. potline monitor on. Pulse ox on. NIBP on. Warm blanket given. 19:15 Clifton Quick, RN is Primary Nurse. mg2 19:18 Gunner Watts PA is PHCP. jr8 19:18 Albert Rodriguez MD is Attending Physician. jr8 19:50 XRAY Chest (1 view) In Process Unspecified. EDMS 19:50 Inserted saline lock: 20 gauge in left hand, using aseptic technique. Blood collected. mg2 20:09 No provider procedures requiring assistance completed. mg2 21:35 IV discontinued, intact, bleeding controlled, No redness/swelling at site. Pressure mg2 dressing applied. Administered Medications: No medications were administered Outcome: 21:19 Discharge ordered by . jr8 21:35 [facility] to jail. Report called to ALONSO Obando mg2 22:44 Condition: good mg2 22:44 Discharge instructions given to jail, EMS, Instructed on discharge instructions, follow up and referral plans. Demonstrated understanding of instructions, follow-up care. 22:44 Patient left the ED. mg2 Signatures: Dispatcher [employer] EDND Gunner Watts PA PA jr8 Macey Kaufman RN RN rb1 Liang Urias RN RN jl7 Clifton Quick, ALONSO RN mg2
--- NOTE | 2020-07-05 21:20 | EDPHYS ---
Physician Documentation [facility] Name: Aurora Hendrickson Age: 89 yrs Sex: Female : 1930 Arrival Date: 07/05/2020 Time: 17:58 Bed 15 Private MD: ED Physician Albert Rodriguez HPI: 07/05 21:06 This 89 yrs old Female presents to ER via EMS with complaints of Lethargy, jr8 Cough. 21:06 EMS brought patient to ED after being called out by OR for cough and shortness of jr8 breath. Patient upon arrival without acute distress. No complaints at this time. History of dementia and confused which is baseline . Severity of symptoms: At their worst the symptoms were mild in the emergency department the symptoms are unchanged. It is unknown whether or not the patient has had similar symptoms in the past. The patient has not recently seen a physician. Historical: - Allergies: 17:50 Demerol; rb1 17:50 Zofran; rb1 - PMHx: 17:50 Chronic pain; constipation; Dementia; Depression; GERD; Hyperlipidemia; Hypertension; rb1 - Immunization history:: Adult Immunizations up to date. - Social history:: Smoking status: Patient denies any tobacco usage or history of. ROS: 21:06 Eyes: Negative for injury, pain, redness, and discharge, ENT: Negative for injury, jr8 pain, and discharge, Neck: Negative for injury, pain, and swelling, Cardiovascular: Negative for chest pain, palpitations, and edema, Abdomen/GI: Negative for abdominal pain, nausea, vomiting, diarrhea, and constipation, Back: Negative for injury and pain, MS/Extremity: Negative for injury and deformity, Skin: Negative for injury, rash, and discoloration, Neuro: Negative for headache, weakness, numbness, tingling, and seizure. 21:06 Respiratory: Positive for cough, shortness of breath. Exam: 21:06 Eyes: Pupils equal round and reactive to light, extra-ocular motions intact. Lids and jr8 lashes normal. Conjunctiva and sclera are non-icteric and not injected. Cornea within normal limits. Periorbital areas with no swelling, redness, or edema. ENT: Nares patent. No nasal discharge, no septal abnormalities noted. Tympanic membranes are normal and external auditory canals are clear. Oropharynx with no redness, swelling, or masses, exudates, or evidence of obstruction, uvula midline. Mucous membranes moist. Neck: Trachea midline, no thyromegaly or masses palpated, and no cervical lymphadenopathy. Supple, full range of motion without nuchal rigidity, or vertebral point tenderness. No Meningismus. Cardiovascular: Regular rate and rhythm with a normal S1 and S2. No gallops, murmurs, or rubs. Normal PMI, no JVD. No pulse deficits. Respiratory: Lungs have equal breath sounds bilaterally, clear to auscultation and percussion. No rales, rhonchi or wheezes noted. No increased work of breathing, no retractions or nasal flaring. Abdomen/GI: Soft, non-tender, with normal bowel sounds. No distension or tympany. No guarding or rebound. No evidence of tenderness throughout. Back: No spinal tenderness. No costovertebral tenderness. Full range of motion. Skin: Warm, dry with normal turgor. Normal color with no rashes, no lesions, and no evidence of cellulitis. MS/ Extremity: Pulses equal, no cyanosis. Neurovascular intact. Full, normal range of motion. 21:06 Neuro: Orientation: to person, Mentation: able to follow commands, confused, Memory: immediate memory is intact, remote memory is impaired, recent memory is impaired, Cranial nerves: CN I not tested, CN II- XII are normal as tested, extraocular movements are intact, Facial palsy and sensory deficits are absent. Speech is clear and appropriate. Tongue strength is normal, Motor: moves all fours, Sensation: no obvious gross deficits, seizure activity, is not displayed by the patient, Abnormal movements: there are no abnormal movements. Vital Signs: 18:00 BP 138 / 58; Pulse 58; Resp 14; Temp 97.1; Pulse Ox 95% ; jl7 20:38 BP 130 / 53; Pulse 50; Resp 18; Pulse Ox 95% on R/A; mg2 21:35 BP 112 / 64; Pulse 70; Resp 18; Temp 98; Pulse Ox 97% on R/A; mg2 MDM: 19:19 Patient medically screened. jr8 21:06 Data reviewed: vital signs, nurses notes, lab test result(s), EKG, radiologic studies, jr8 plain films, and as a result, I will discharge patient. Data interpreted: Pulse oximetry: on room air is 95 %. Interpretation: normal. Counseling: I had a detailed discussion with the patient and/or guardian regarding: the historical points, exam findings, and any diagnostic results supporting the discharge/admit diagnosis, lab results, radiology results, the need for outpatient follow up, a family practitioner, to return to the emergency department if symptoms worsen or persist or if there are any questions or concerns that arise at home. ED course: No acute findings on labs, ecg, or imaging. Patient was covid swabbed due to symptoms. Nothing present on exam or diagnostics to necessitate admission. Will d/c back to OR with return precautions . 07/05 19:19 Order name: Basic Metabolic Panel; Complete Time: 21:07/05 19:19 Order name: CBC with Diff; Complete Time: 21:07/05 19:19 Order name: LFT's; Complete Time: 21:07/05 19:19 Order name: Magnesium; Complete Time: 21:07/05 19:19 Order name: NT PRO-BNP; Complete Time: 21:07/05 19:19 Order name: PT-INR; Complete Time: 21:06 07/05 19:19 Order name: Troponin (emerg Dept Use Only); Complete Time: 21:06 07/05 19:19 Order name: XRAY Chest (1 view); Complete Time: 20:14 07/05 19:19 Order name: EKG; Complete Time: 19:20 07/05 19:19 Order name: Cardiac monitoring; Complete Time: 20:07/05 19:19 Order name: EKG - Nurse/Tech; Complete Time: 20:07/05 19:19 Order name: IV Saline Lock; Complete Time: 20:07/05 19:19 Order name: Blood Culture Adult (2) 07/05 19:19 Order name: Labs collected and sent; Complete Time: 20:07/05 19:19 Order name: O2 Per Protocol; Complete Time: 20:07/05 19:19 Order name: O2 Sat Monitoring; Complete Time: 20: Administered Medications: No medications were administered Disposition: 07/06 01:28 Co-signature as Attending Physician, Albert Rodriguez MD. pkl Disposition: 07/05/20 21:19 Discharged to Home. Impression: Cough. - Condition is Stable. - Discharge Instructions: Cough, Adult, COVID-19. - Medication Reconciliation Form, Thank You Letter, Antibiotic Education, Prescription Opioid Use, SBAR form form. - Follow up: Private Physician; When: 2 - 3 days; Reason: Recheck today's complaints, Continuance of care, Re-evaluation by your physician. - Problem is new. - Symptoms have improved. Signatures: Dispatcher [employer] EDCO Albert Rodriguez MD MD pkl Gunner Watts PA PA jr8 Macey Kaufman, RN RN rb1 Liang Urias RN RN jl7 Clifton Quick RN RN mg2 Corrections: (The following items were deleted from the chart) 07/05 21:28 20:09 CORONAVIRUS+MR.LAB.BRZ ordered. [facility] 22:44 21:19 07/05/2020 21:19 Discharged to Home. Impression: Cough. Condition is Stable. mg2 Forms are Medication Reconciliation Form, Thank You Letter, Antibiotic Education, Prescription Opioid Use. Follow up: Private Physician; When: 2 - 3 days; Reason: Recheck today's complaints, Continuance of care, Re-evaluation by your physician. Problem is new. Symptoms have improved. jr8
[2020-07-05 23:56] VITALS: BP 112/64; TEMP 98; O2SAT 97
--- NOTE | 2020-07-06 07:40 | EKG ---
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
== END 2020-07-05 22:44 | disposition home or self-care (01) ==
LOC: ER 17:49
DX: R05 Cough (principal); I10 Essential (primary) hypertension; F03.90 Unspecified dementia, unspecified severity, without behavioral disturbance, psychotic disturbance, mood disturbance, and anxiety; Z88.5 Allergy status to narcotic agent; Z88.8 Allergy status to other drugs, medicaments and biological substances
CPT/HCPCS: 36415; 71045; 80048; 80076; 83735; 83880; 84484; 85025; 85610; 87040; 93005; 99284

== ENCOUNTER 2020-07-30 21:45 | Emergency (ER) | payer OTHER ==
[2020-07-30 22:33] LABS: Absolute Lymphocytes (CBC) 1.1 K/uL (0.7-4.9); Basophils % 0.7 % (0-1.3); Hematocrit 36.1 % (36.0-45.0); MPV 7.9 fL (7.6-11.3); RBC Red Blood Cell Count 4.02 M/uL (3.86-4.86)
[2020-07-30 22:48] LABS: Potassium 4.3 mmol/L (3.5-5.1)
[2020-07-30] MEDS ORDERED: MORPHINE 2 MG/ML SYR ONE (23:04)
[2020-07-30] MEDS ORDERED: NA CHLORIDE 0.9% 250 ML ONE (23:45)
[2020-07-30 23:59] LABS: Urine Blood NEGATIVE (NEG); Urine Glucose NEGATIVE (NEG); Urine Protein NEGATIVE (NEG)
--- NOTE | 2020-07-30 23:59 | ER ---
Nurse's Notes [facility] Name: Aurora Hendrickson Age: 89 yrs Sex: Female : 1930 Arrival Date: 07/30/2020 Time: 21:48 Bed 19 Private MD: Diagnosis: Low back pain;Dehydration Presentation: 07/30 21:48 Chief complaint: EMS states: EMS was called to [facility] because staff suspected aj patient had a stroke because she was sleeping at the dining table and when staff woke her up she gasped. Patient is awake upon EMS arrival, patient is oriented x1, which is her normal per long-term staff. Patient has equal hand director loss prevention, no facial droop noted, no slurred speech. Patient reports back pain, which is chronic according to long-term staff. Coronavirus screen: Client denies travel out of the [place] in the last 14 days. Ebola Screen: Patient denies travel to an Ebola-affected area in the 21 days before illness onset. Initial Sepsis Screen: Does the patient meet any 2 criteria? No. Patient's initial sepsis screen is negative. Does the patient have a suspected source of infection? No. Patient's initial sepsis screen is negative. Risk Assessment: Do you want to hurt yourself or someone else? Patient reports no desire to harm self or others. Onset of symptoms was July 30, 2020. 21:48 Method Of Arrival: EMS: [place] [id number] 21:48 Acuity: SHAREE 3 aj1 Triage Assessment: 21:53 General: Appears in no apparent distress. comfortable, Behavior is calm, cooperative, aj1 appropriate for age. Pain: Complains of pain in back. Historical: - Allergies: 21:53 Demerol; aj1 21:53 Zofran; aj1 - Home Meds: 21:53 acetaminophen-codeine 300-30 mg Oral tab 1 tab every 6 hours [Active]; alprazolam 0.5 aj1 mg Oral tab 1 tab [Active]; aspirin 325 mg Oral TbEC once daily [Active]; atorvastatin Calcium 1 tab PO every night at bedtime 40 mg nightly [Active]; diltiazem HCl 30 mg Oral tab 1 tab daily [Active]; furosemide 20 mg Oral tab 1 tab once daily [Active]; gabapentin 100 mg Oral cap 1 caps 3 times per day [Active]; lactulose 10 gram/15 mL (15 mL) Oral soln 30 mL Every other day [Active]; levothyroxine 25 mcg tab 1 tab once daily [Active]; lisinopril 5 mg Oral tab 1 tab once daily [Active]; magnesium oxide 400 mg Oral tab twice a day [Active]; meclizine 25 mg Oral tab 1 tab 4 times per day [Active]; metoprolol tartrate 25 mg Oral tab 1 tab 2 times per day [Active]; morphine 15 mg Oral cpER 1 tab daily [Active]; nitroglycerin 0.4 mg SL subl 1 tab every 5 minutes [Active]; potassium chloride 10 mEq Oral cpER 1 tab once daily [Active]; Protonix 40 mg Oral TbEC 1 tab once daily [Active]; tizanidine Oral [Active]; topiramate 25 mg Oral tab nightly [Active]; Vitamin B-6 50 mg Oral tab daily [Active]; - PMHx: 21:53 Chronic pain; constipation; Dementia; Depression; GERD; Hyperlipidemia; Hypertension; aj1 - Immunization history:: Adult Immunizations up to date. - Social history:: Smoking status: Patient/guardian denies using tobacco. - Family history:: not pertinent. - Hospitalizations: : No recent hospitalization is reported. Screenin:55 Abuse screen: Denies threats or abuse. Denies injuries from another. Nutritional aj1 screening: No deficits noted. Tuberculosis screening: No symptoms or risk factors identified. 07/31 00:10 Fall Risk None identified. Assessment: 07/30 21:48 Reassessment: pt FERNANDO Royal can be reached at [phone] or home phone at [phone].sg 21:55 General: Appears in no apparent distress. comfortable, Behavior is calm, cooperative, aj1 appropriate for age. General: Behavior is. Pain: Complains of pain in back Pain does not radiate. Pain currently is 9 out of 10 on a pain scale. Neuro: Level of Consciousness is awake, alert, obeys commands, Oriented to person, Char Puller are equal bilaterally. Neuro: Cardiovascular: Patient's skin is warm and dry. Respiratory: Airway is patent Respiratory effort is even, unlabored, Respiratory pattern is regular, symmetrical. GI: No signs and/or symptoms were reported involving the gastrointestinal system. : No signs and/or symptoms were reported regarding the genitourinary system. EENT: No signs and/or symptoms were reported regarding the EENT system. Derm: No signs and/or symptoms reported regarding the dermatologic system. Skin is pink, warm \T\ dry. normal. Musculoskeletal: No signs and/or symptoms reported regarding the musculoskeletal system. Circulation, motion, and sensation intact. 23:15 Reassessment: Patient appears in no apparent distress at this time. No changes from aj1 previously documented assessment. Patient and/or family updated on plan of care and expected duration. Pain level reassessed. 07/31 00:15 Reassessment: SPoke with Yelena at [facility], stated they will call me back for report. 00:31 Reassessment: Spoke with Meliza Whaley RN. report was given, instructed to call for EMS for transport and notify us. 01:20 Reassessment: Patient appears in no apparent distress at this time. Patient and/or family updated on plan of care and expected duration. Pain level reassessed. Patient is alert, oriented x 3, equal unlabored respirations, skin warm/dry/pink. DC instruction provided to daughter. Vital Signs: 07/30 21:48 BP 132 / 51; Pulse 64; Resp 16; Temp 97.2; Pulse Ox 100% on R/A; aj1 23:31 BP 102 / 56; Pulse 56; Resp 18; Pulse Ox 100% on R/A; aj1 07/31 01:15 BP 102 / 57; Pulse 59; Resp 16; Pulse Ox 98% on R/A; ED Course: 07/30 21:48 Patient arrived in ED. sg 21:52 Triage completed. aj1 21:53 Arm band placed on. aj1 21:54 Mitchel Landers MD is Attending Physician. rn 21:55 Patient has correct armband on for positive identification. aj1 21:55 No provider procedures requiring assistance completed. aj1 22:15 Esha Davila, RN is Primary Nurse. aj1 22:15 Initial lab(s) drawn, by me, sent to lab. Inserted saline lock: 20 gauge in left wrist, jp3 using aseptic technique. Blood collected. 22:19 Bed in low position. Call light in reach. Side rails up X2. Warm blanket given. Verbal jp3 reassurance given. rubber trimmer on. Pulse ox on. NIBP on. 22:32 CT Head Brain wo Cont In Process Unspecified. EDMS 23:59 Report given to ALONSO Shane. [facility] 07/31 01:17 IV discontinued, intact, bleeding controlled, No redness/swelling at site. Administered Medications: 07/30 23:35 Drug: NS 0.9% 250 ml Route: IV; Rate: bolus; Site: left hand; [facility] 07/31 01:21 Follow up: Response: No adverse reaction; IV Status: Completed infusion 07/30 23:58 Drug: morphine 1 mg Route: IVP; Site: left hand; [facility] 23:58 Follow up: Response: No adverse reaction [facility] 07/31 01:22 Follow up: Response: No adverse reaction; Pain is decreased; RASS: Alert and Calm (0) Outcome: 07/30 23:58 Discharge ordered by . alonso 07/31 01:18 Discharged to home via wheelchair, with family. Condition: stable Discharge instructions given to patient, family, Instructed on discharge instructions, follow up and referral plans. POC Demonstrated understanding of instructions, follow-up care, POC 01:19 Patient left the ED. sg Signatures: Dispatcher [employer] Esha De Dios RN RN aj Luís Kramer RN RN sg Nieto, Roman, MD MD rn Habalo, Winsy Chago Cancino jp3
--- NOTE | 2020-07-30 23:59 | EDPHYS ---
Physician Documentation [facility] Name: Aurora Hendrickson Age: 89 yrs Sex: Female : 1930 Arrival Date: 07/30/2020 Time: 21:48 Bed 19 Private MD: ED Physician Mitchel Landers HPI: 07/30 21:56 This 89 yrs old Female presents to ER via EMS with complaints of possible AMS.rn 21:56 The patient presents with confusion. Onset: The symptoms/episode began/occurred at an rn unknown time. Possible causes: unknown. Current symptoms: In the emergency department the patient's symptoms have improved. It is unknown whether or not the patient has had similar symptoms in the past. Per EMS report, patient was asleep at table, when woke her up, she was startled, and was not aware of where she was, staff called 911 for possible stroke. Patient reported to be at baseline after initial confusion, and only complains of chronic back pain. No new injury/head injury/chest pain/abd pain/vomiting/diarrhea. . Historical: - Allergies: 21:53 Demerol; aj1 21:53 Zofran; aj1 - Home Meds: 21:53 acetaminophen-codeine 300-30 mg Oral tab 1 tab every 6 hours [Active]; alprazolam 0.5 aj1 mg Oral tab 1 tab [Active]; aspirin 325 mg Oral TbEC once daily [Active]; atorvastatin Calcium 1 tab PO every night at bedtime 40 mg nightly [Active]; diltiazem HCl 30 mg Oral tab 1 tab daily [Active]; furosemide 20 mg Oral tab 1 tab once daily [Active]; gabapentin 100 mg Oral cap 1 caps 3 times per day [Active]; lactulose 10 gram/15 mL (15 mL) Oral soln 30 mL Every other day [Active]; levothyroxine 25 mcg tab 1 tab once daily [Active]; lisinopril 5 mg Oral tab 1 tab once daily [Active]; magnesium oxide 400 mg Oral tab twice a day [Active]; meclizine 25 mg Oral tab 1 tab 4 times per day [Active]; metoprolol tartrate 25 mg Oral tab 1 tab 2 times per day [Active]; morphine 15 mg Oral cpER 1 tab daily [Active]; nitroglycerin 0.4 mg SL subl 1 tab every 5 minutes [Active]; potassium chloride 10 mEq Oral cpER 1 tab once daily [Active]; Protonix 40 mg Oral TbEC 1 tab once daily [Active]; tizanidine Oral [Active]; topiramate 25 mg Oral tab nightly [Active]; Vitamin B-6 50 mg Oral tab daily [Active]; - PMHx: 21:53 Chronic pain; constipation; Dementia; Depression; GERD; Hyperlipidemia; Hypertension; aj1 - Immunization history:: Adult Immunizations up to date. - Social history:: Smoking status: Patient/guardian denies using tobacco. - Family history:: not pertinent. - Hospitalizations: : No recent hospitalization is reported. ROS: 22:10 Constitutional: Negative for fever, chills, and weight loss, Eyes: Negative for injury, rn pain, redness, and discharge, Neck: Negative for injury, pain, and swelling, Cardiovascular: Negative for chest pain, palpitations, and edema, Respiratory: Negative for shortness of breath, cough, wheezing, and pleuritic chest pain, Abdomen/GI: Negative for abdominal pain, nausea, vomiting, diarrhea, and constipation, Back: + chronic back pain, no new injury MS/Extremity: Negative for injury and deformity, Skin: Negative for injury, rash, and discoloration, Neuro: Negative for headache, weakness, numbness, tingling, and seizure. Exam: 22:10 Constitutional: Overweight female, reports back pain Head/Face: Normocephalic, rn atraumatic. Cardiovascular: Regular rate and rhythm. No pulse deficits. Respiratory: Speaking full sentences. No increased work of breathing, no retractions or nasal flaring. Abdomen/GI: soft, non-tender, non-distended Skin: Warm, dry MS/ Extremity: Pulses equal, no cyanosis. + mild erythema bilateral lower ext, with 2+ pitting edema, equal circumference. Neuro: Awake and alert, GCS 15, oriented to person, place, and situation. Cranial nerves II-XII grossly intact. Motor strength 4/5 in all extremities. Sensory grossly intact. Vital Signs: 21:48 BP 132 / 51; Pulse 64; Resp 16; Temp 97.2; Pulse Ox 100% on R/A; aj1 23:31 BP 102 / 56; Pulse 56; Resp 18; Pulse Ox 100% on R/A; aj1 09/13 01:15 BP 102 / 57; Pulse 59; Resp 16; Pulse Ox 98% on R/A; MDM: 07/30 21:54 Patient medically screened. rn 23:11 ED course: CT head negative. . rn 23:57 Differential Diagnosis: CVA, TIA, UTI, volume depletion. Differential Diagnosis: alternative dispute resolution mediator back pain. Data reviewed: vital signs, nurses notes. Counseling: I had a detailed discussion with the patient and/or guardian regarding: the historical points, exam findings, and any diagnostic results supporting the discharge/admit diagnosis, lab results, radiology results, the need for outpatient follow up, to return to the emergency department if symptoms worsen or persist or if there are any questions or concerns that arise at home. Response to treatment: the patient's symptoms have mildly improved after treatment, and as a result, I will discharge patient. Special discussion: I discussed with the patient/guardian in detail that at this point there is no indication for admission to the hospital. It is understood, however, that if the symptoms persist or worsen the patient needs to return immediately for re-evaluation. ED course: CT head neg, no acute findings on labs other than possible dehydration, mild, and UA neg. Will dc home.. 07/30 21:55 Order name: CBC with Diff; Complete Time: 22:48 07/30 21:55 Order name: Basic Metabolic Panel; Complete Time: 23:05 07/30 21:54 Order name: CT Head Brain wo Cont 07/30 23:58 Order name: Urine Dipstick--Ancillary (enter results) tt3 07/30 21:55 Order name: IV Start; Complete Time: 22:19 07/30 21:55 Order name: Urine Dipstick-Ancillary (obtain specimen); Complete Time: 00:04 rn Administered Medications: 23:35 Drug: NS 0.9% 250 ml Route: IV; Rate: bolus; Site: left hand; 07/31 01:21 Follow up: Response: No adverse reaction; IV Status: Completed infusion 07/30 23:58 Drug: morphine 1 mg Route: IVP; Site: left hand; 23:58 Follow up: Response: [facility] 07/31 01:22 Follow up: Response: No adverse reaction; Pain is decreased; RASS: Alert and Calm (0) Disposition: 07/30/20 23:58 Discharged to Home. Impression: Low back pain, Dehydration. - Condition is Stable. - Discharge Instructions: Back Pain, Adult, Dehydration, Adult. - Medication Reconciliation Form, Thank You Letter, Antibiotic Education, Prescription Opioid Use form. - Follow up: Private Physician; When: As needed; Reason: Recheck today's complaints, Re-evaluation by your physician. - Problem is new. - Symptoms have improved. Signatures: Dispatcher [employer] EDEsha Jones RN RN aj1 Luís Kramer RN RN sg Mithcel Landers MD MD rn Habalo, Winsy Corrections: (The following items were deleted from the chart) 01:19 07/30 23:58 07/30/2020 23:58 Discharged to Home. Impression: Low back pain; sg Dehydration. Condition is Stable. Forms are Medication Reconciliation Form, Thank You Letter, Antibiotic Education, Prescription Opioid Use. Follow up: Private Physician; When: As needed; Reason: Recheck today's complaints, Re-evaluation by your physician. Problem is new. Symptoms have improved. rn
[2020-07-31 01:26] VITALS: TEMP 97.2; O2SAT 100
[2020-07-31 01:27] VITALS: BP 102/56
--- NOTE | 2020-07-31 19:30 | RAD REPORT ---
EXAM DESCRIPTION: CT Head Without Intravenous Contrast CLINICAL HISTORY: The patient is 89 years old and is Female; CONFUSED TECHNIQUE: Axial computed tomography images of the head/brain without intravenous contrast. Sagitt al and coronal reformatted images were created and reviewed. This CT exam was performed using one o r more of the following dose reduction techniques: automated exposure control, adjustment of the mA and/or kV according to patient size, and/or use of iterative reconstruction technique. COMPARISON: CT of the head May 10, 2020 FINDINGS: BRAIN: Focal area of encephalomalacia within the left occipital lobe is present. There i s diffuse cerebral atrophy present, consistent with this patient's age. There is patchy hypoattenua tion of the deep white matter which is non-specific, but most likely owing to chronic small vessel is chemic change in a patient of this age group. No intracranial hemorrhage, mass effect, or midline s hift is seen. There are no extra-axial fluid collections. VENTRICLES: There is diffuse prominence of the ventricles, which is likely related to central at rophy. BONES/JOINTS: No acute fracture. SOFT TISSUES: Unremarkable. VASCULATURE: Atherosclerosis of intracranial vasculature is present. SINUSES: Unremarkable as visualized. No acute sinusitis. MASTOID AIR CELLS: Unremarkable as visualized. No mastoid effusion. ORBITS: Unremarkable as visualized. IMPRESSION: Age-related atrophy and chronic white matter ischemic changes, with no evidence of an ac fe intracranial abnormality. Electronically signed by: Caren Franco MD 07/30/2020 10:41 PM CDT Due to temporary technical issues with the PACS/Fluency reporting system, reports are being signed by the in house radiologist without review as a courtesy to ensure prompt reporting. The interpreting r adiologist is fully responsible for the content of the report.
== END 2020-07-31 01:19 | disposition home or self-care (01) ==
LOC: ER 21:45
DX: E86.0 Dehydration (principal); M54.5 Low back pain; I10 Essential (primary) hypertension; F32.9 Major depressive disorder, single episode, unspecified; F03.90 Unspecified dementia, unspecified severity, without behavioral disturbance, psychotic disturbance, mood disturbance, and anxiety; Z79.82 Long term (current) use of aspirin; Z88.5 Allergy status to narcotic agent; Z88.8 Allergy status to other drugs, medicaments and biological substances
CPT/HCPCS: 96365; 85025; 80048; 36415; 81003; 70450; 96375; 99284; 96366; J2270; J7050

== ENCOUNTER 2020-08-09 22:48 | Emergency (ER) | payer OTHER ==
[2020-08-10 00:25] LABS: Absolute Lymphocytes (CBC) 0.7 K/uL (0.7-4.9); Basophils % 0.5 % (0-1.3); Hematocrit 32.9 % (36.0-45.0); Lymphocytes % 9.8 % (15.3-44.8)
[2020-08-10 00:30] LABS: Protime INR 0.94
[2020-08-10 00:36] LABS: ALT/SGPT 44 U/L (12-78); AST/SGOT 54 U/L (15-37); Albumin 2.9 g/dL (3.4-5.0); Alkaline Phosphatase 119 U/L (45-117); BUN Blood Urea Nitrogen 32 mg/dL (7-18); Bicarbonate 28 mmol/L (21-32); Bilirubin Direct 0.1 mg/dL (0-0.2); Bilirubin Total 0.3 mg/dL (0.2-1.0); Glucose Level 102 mg/dL (74-106); Magnesium 2.4 mg/dL (1.8-2.4); NT PRO-BNP 567 pg/mL (<450); Potassium 4.4 mmol/L (3.5-5.1); Protein, Total 6.2 g/dL (6.4-8.2); Sodium Level 137 mmol/L (136-145); Troponin (Emerg Dept Use Only) < 0.02 ng/mL (0.0-0.045)
--- NOTE | 2020-08-10 01:56 | ER ---
Nurse's Notes [facility] Name: Aurora Hendrickson Age: 89 yrs Sex: Female : 1930 Arrival Date: 08/09/2020 Time: 22:50 Bed 6 Private MD: Unknown, Unknown Diagnosis: Dementia in other diseases classified elsewhere Presentation: 08/09 23:05 Chief complaint: EMS states: PATIENT IS FROM [facility], WITH ALTERED MENTAL rv STATUS THAN NORMAL. DENIES ANY FEVER. WITH EPISODE OF DESATURATION, 88% AT ROOM AIR STATED BY THE NURSE, EMS CHECK THE OXYGEN LEVEL UPON ARRIVAL, 97% AT RA. PATIENT DENIES ANY PAIN. Coronavirus screen: At this time, the client does not indicate any symptoms associated with coronavirus-19. Ebola Screen: No symptoms or risks identified at this time. Initial Sepsis Screen: Does the patient meet any 2 criteria? No. Patient's initial sepsis screen is negative. Does the patient have a suspected source of infection? Yes: Skin breakdown/wound. Risk Assessment: Do you want to hurt yourself or someone else? Patient reports no desire to harm self or others. Onset of symptoms is unknown. 23:05 Method Of Arrival: EMS: [facility] rv 23:05 Acuity: SHAREE 3 rv Historical: - Allergies: 23:09 Demerol; rv 23:09 Zofran; rv - PMHx: 23:09 Chronic pain; constipation; Dementia; Depression; GERD; Hyperlipidemia; Hypertension; rv - PSHx: 23:09 Unable to obtain; rv - Immunization history:: Adult Immunizations up to date. - Social history:: Smoking status: unknown. Screenin/23 02:36 Abuse screen: Denies threats or abuse. Nutritional screening: No deficits noted. bb Tuberculosis screening: No symptoms or risk factors identified. Fall Risk None identified. Assessment: 08/09 23:00 General: Appears uncomfortable, obese, unkempt, Behavior is agitated. Pain: Unable to bb use pain scale. Neuro: Level of Consciousness is awake, Oriented to person. Cardiovascular: Capillary refill < 3 seconds Patient's skin is warm and dry. erythema to bilateral lower legs. Edema is 3+ to left midcalf, left ankle, left foot, right midcalf, right ankle and right foot. Respiratory: Airway is patent Respiratory effort is even, unlabored, Respiratory pattern is regular. GI: No deficits noted. Derm: Skin has lesions on pt has multiple lesions on face, trunk, and all extremities. Musculoskeletal: Circulation, motion, and sensation intact. 08/10 00:00 Reassessment: No changes from previously documented assessment. pt resting quietly bb states she is cold warm blankets given. 00:51 Reassessment: pt is A\T\O x 1, resp unlabored, peña catheter in place, IV site intact, bb awaiting diagnostic results. 02:10 Reassessment: pt is A\T\O x 1, resp unlabored pt appears to be sleeping eyes closed, resp bb unlabored, awaiting transportation back to [facility]. 03:49 Reassessment: pt is unable to stand on her own without assistance transferring at this sg time, pt to be transported back to [facility] at this time. 04:11 Reassessment: attempt to call report to nursing staff at [facility], spoke with anjel Hui who trasnfered me to memory care, spoke with [facility] hospitality aide staff who took a message and will have the nurse call ER back for pt report. 04:15 Reassessment: report called to ALONSO Garcia for [facility] memory care. sg Vital Signs: 08/09 22:30 BP 111 / 46; Pulse 63; Resp 15; Pulse Ox 97% on R/A; rv 23:00 BP 103 / 46; Pulse 64; Resp 13; Pulse Ox 97% on R/A; rv 23:05 BP 103 / 46; Pulse 60; Resp 14; Temp 97.8; Pulse Ox 97% on R/A; Weight 81.65 kg; Pain rv 0/10; 23:30 BP 109 / 52; Pulse 66; Resp 16; Pulse Ox 97% on R/A; rv 08/10 00:30 BP 120 / 45; Pulse 75; Resp 16; Pulse Ox 100% on R/A; rv 01:51 BP 112 / 38; Pulse 65; Resp 13; Pulse Ox 97% on R/A; bb ED Course: 08/09 22:50 Patient arrived in ED. rv 23:00 Patient has correct armband on for positive identification. Bed in low position. Call bb light in reach. Side rails up X2. Pulse ox on. NIBP on. Warm blanket given. 23:09 Triage completed. rv 23:09 Arm band placed on right wrist. Patient placed in the treatment room, on a stretcher, rv Patient notified of wait time. 23:12 Omar Teran PA is PHCP. cp 23:12 Omar Werner MD is Attending Physician. cp 23:47 XRAY Chest (1 view) In Process Unspecified. EDMS 23:52 Inserted saline lock: 20 gauge in right antecubital area, using aseptic technique. rv Blood collected. 23:52 Initial lab(s) drawn, by me, sent to lab. First set of blood cultures drawn by me. rv 08/10 00:25 CT Head Brain wo Cont In Process Unspecified. EDMS 00:30 Peña cath inserted, using sterile technique, 16 Fr., by me, balloon inflated, urine bb specimen collected. Patient tolerated poorly. 01:50 Gabino Paredes, RN is Primary Nurse. rv 02:36 No provider procedures requiring assistance completed. IV is intact, no erythema or bb edema noted. 03:13 Unknown, Unknown is Private Physician. sg Administered Medications: No medications were administered Outcome: 01:56 Discharge ordered by . cp 04:25 Patient left the ED. rv Signatures: Dispatcher [employer] EDMS Luís Kramer RN RN Lissy Collier RN RN Omar Shannon PA PA cp Vicente, Ronaldo, RN RN rv
--- NOTE | 2020-08-10 01:57 | EDPHYS ---
Physician Documentation [facility] Name: Aurora Hendrickson Age: 89 yrs Sex: Female : 1930 Arrival Date: 08/09/2020 Time: 22:50 Bed 6 Private MD: Unknown, Unknown ED Physician Omra Werner HPI: 08/09 23:20 This 89 yrs old Female presents to ER via EMS with complaints of Altered cp Mental Status. 23:20 The patient presents with decreased mental status. Onset: The symptoms/episode cp began/occurred today. Possible causes: unknown. Associated signs and symptoms: Pertinent negatives: abdominal pain, agitation, chest pain, combativeness, headache. Patient's baseline: Neuro: orientated to person, Motor: no deficits, Speech: normal. Historical: - Allergies: 23:09 Demerol; rv 23:09 Zofran; rv - PMHx: 23:09 Chronic pain; constipation; Dementia; Depression; GERD; Hyperlipidemia; Hypertension; rv - PSHx: 23:09 Unable to obtain; rv - Immunization history:: Adult Immunizations up to date. - Social history:: Smoking status: unknown. ROS: 23:25 Cardiovascular: Negative for chest pain. cp 23:25 Constitutional: Negative for fever. cp 23:25 Respiratory: Negative for cough, shortness of breath. 23:25 Abdomen/GI: Negative for abdominal pain, vomiting, diarrhea. 23:25 Neuro: Negative for dizziness, headache, weakness. cp 23:25 All other systems are negative. Exam: 23:33 Constitutional: The patient appears in no acute distress, alert, awake, cp non-diaphoretic, non-toxic, well developed, well nourished. 23:33 Head/Face: Normocephalic, atraumatic. cp 23:33 Eyes: Periorbital structures: appear normal, Conjunctiva: normal, no exudate, no injection, Sclera: no appreciated abnormality, Lids and lashes: appear normal, bilaterally. 23:33 ENT: External ear(s): are unremarkable, Nose: is normal, Mouth: Lips: moist, Oral mucosa: moist, Posterior pharynx: Airway: no evidence of obstruction, patent. 23:33 Neck: ROM/movement: is normal, is supple, without pain, no range of motions limitations. 23:33 Chest/axilla: Inspection: normal, Palpation: is normal, no crepitus, no tenderness. 23:33 Cardiovascular: Rate: normal, Rhythm: regular, Edema: noted bilateral lower legs, JVD: is not appreciated. 23:33 Respiratory: the patient does not display signs of respiratory distress, Respirations: normal, no use of accessory muscles, no retractions, labored breathing, is not present, Breath sounds: are clear throughout, no decreased breath sounds. 23:33 Abdomen/GI: Inspection: abdomen appears normal, Palpation: abdomen is soft and non-tender, in all quadrants. 23:33 Skin: cellulitis, is not appreciated. 23:33 Neuro: Orientation: to person, Mentation: able to follow commands, Motor: moves all fours. Vital Signs: 22:30 BP 111 / 46; Pulse 63; Resp 15; Pulse Ox 97% on R/A; rv 23:00 BP 103 / 46; Pulse 64; Resp 13; Pulse Ox 97% on R/A; rv 23:05 BP 103 / 46; Pulse 60; Resp 14; Temp 97.8; Pulse Ox 97% on R/A; Weight 81.65 kg; Pain rv 0/10; 23:30 BP 109 / 52; Pulse 66; Resp 16; Pulse Ox 97% on R/A; rv 08/10 00:30 BP 120 / 45; Pulse 75; Resp 16; Pulse Ox 100% on R/A; rv 01:51 BP 112 / 38; Pulse 65; Resp 13; Pulse Ox 97% on R/A; bb MDM: 08/09 23:18 Patient medically screened. 08/10 01:55 Data reviewed: vital signs, nurses notes, lab test result(s), radiologic studies, CT cp scan, plain films. 01:55 Differential Diagnosis: CVA, electrolyte abnormality, pneumonia, UTI, volume depletion. cp Counseling: I had a detailed discussion with the patient and/or guardian regarding: the historical points, exam findings, and any diagnostic results supporting the discharge/admit diagnosis, lab results, radiology results, to return to the emergency department if symptoms worsen or persist or if there are any questions or concerns that arise at home. 08/09 23:18 Order name: Basic Metabolic Panel; Complete Time: 01:30 cp 08/10 01:30 Interpretation: Normal except: BUN 32; CRE 1.65; GFR 29. cp 08/09 23:18 Order name: CBC with Diff; Complete Time: 01:30 08/10 01:36 Interpretation: Normal except: RBC 3.60; HGB 10.9; HCT 32.9; LYM% 9.8; EOSINOPHIL % cp 8.4; EOSA 0.6. 08/09 23:18 Order name: LFT's; Complete Time: 01:30 08/10 01:31 Interpretation: Normal except: AST 54; ALK 119; TP 6.2; ALB 2.9; A/G 0.9. cp 08/09 23:18 Order name: Magnesium; Complete Time: 01:30 cp 08/09 23:18 Order name: NT PRO-BNP; Complete Time: 01:30 08/09 23:18 Order name: PT-INR; Complete Time: 01:30 08/09 23:18 Order name: Troponin (emerg Dept Use Only); Complete Time: 01:30 08/09 23:18 Order name: XRAY Chest (1 view) 08/09 23:18 Order name: Procalcitonin; Complete Time: 01:30 08/09 23:18 Order name: Lactate; Complete Time: 01:30 08/09 23:18 Order name: CT Head Brain wo Cont 08/09 23:18 Order name: Blood Culture Adult (2) 08/10 01:57 Order name: Urine Dipstick--Ancillary (enter results) [facility] 08/09 23:18 Order name: Cardiac monitoring; Complete Time: 01:11 08/09 23:18 Order name: EKG - Nurse/Tech; Complete Time: 01:12 08/09 23:18 Order name: IV Saline Lock; Complete Time: 01:12 08/09 23:18 Order name: Labs collected and sent; Complete Time: 01:12 08/09 23:18 Order name: O2 Per Protocol; Complete Time: 01:12 08/09 23:18 Order name: O2 Sat Monitoring; Complete Time: 01:12 08/09 23:18 Order name: Urine Dipstick-Ancillary (obtain specimen); Complete Time: 01:11 cp Administered Medications: No medications were administered Disposition: 02:30 Chart complete. cp 11:08 Co-signature as Attending Physician, Omar Werner MD I agree with the assessment and [facility] plan of care. Disposition: 08/10/20 01:56 Discharged to Home. Impression: Dementia in other diseases classified elsewhere. - Condition is Stable. - Discharge Instructions: Dementia. - Medication Reconciliation Form, Thank You Letter, Antibiotic Education, Prescription Opioid Use form. - Follow up: Private Physician; When: 1 - 2 days; Reason: Recheck today's complaints. - Problem is chronic. - Symptoms are unchanged. Signatures: Dispatcher [employer] EDOmar Urias MD MD cha Page, Corey, PA PA Gabino Trivedi, RN RN rv Corrections: (The following items were deleted from the chart) 01:36 01:30 Normal except: RBC 3.60; HGB 10.9; HCT 32.9; LYM% 9.8; EOSINOPHIL % 8.4. cp cp 04:25 01:56 08/10/2020 01:56 Discharged to Home. Impression: Dementia in other diseases rv classified elsewhere. Condition is Stable. Forms are Medication Reconciliation Form, Thank You Letter, Antibiotic Education, Prescription Opioid Use. Follow up: Private Physician; When: 1 - 2 days; Reason: Recheck today's complaints. Problem is chronic. Symptoms are unchanged. cp 20:43 08/09 23:25 Neuro: Positive for altered mental status, Negative for headache, cp cp 08/10 20:43 08/09 23:25 All other systems are negative, cp cp
[2020-08-10 03:09] LABS: Urine Blood NEGATIVE (NEG); Urine Glucose NEGATIVE (NEG); Urine Protein NEGATIVE (NEG)
[2020-08-10 04:55] VITALS: TEMP 97.8
[2020-08-10 04:59] VITALS: BP 112/38; O2SAT 97
--- NOTE | 2020-08-10 08:16 | RAD REPORT ---
EXAM DESCRIPTION: [facility] Single View08/09/2020 11:47 pm CLINICAL HISTORY: Shortness of breath COMPARISON: June 2020 FINDINGS: The lungs appear clear of acute infiltrate. The heart is mildly enlarged IMPRESSION: No acute abnormalities displayed
--- NOTE | 2020-08-10 09:59 | RAD REPORT ---
EXAM DESCRIPTION: CT - Head Brain Wo Cont - 08/10/2020 6:59 am CLINICAL HISTORY: MENTAL STATUS CHANGE TECHNIQUE: Contiguous axial CT images obtained through the brain without IV contrast. Coronal and sa gittal reformatted images were provided. This exam was performed according to our departmental dose-optimization program, which includes autom ated exposure control, adjustment of the mA and/or kV according to patient size and/or use of iterati ve reconstruction technique. 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 No focal mass effect. Adnielle-white matter differentiation is within normal limits. No hemorrhage. Ventricles: No ventriculomegaly or midline shift. Extra-axial spaces: No extra-axial collection or hemorrhage. Paranasal sinuses and mastoid air cells: Well-aerated Vessels: There is atherosclerotic disease of the internal carotid arteries bilaterally. Bones: Unremarkable Soft tissues: Unremarkable IMPRESSION: 1. No acute hemorrhage, focal mass or acute large territory infarction. 2. Other findings as above. Electronically signed by: Eli Gongora MD 08/10/2020 12:32 AM CDT Due to temporary technical issues with the PACS/Fluency reporting system, reports are being signed by the in house radiologist without review as a courtesy to ensure prompt reporting. The interpreting r adiologist is fully responsible for the content of the report.
== END 2020-08-10 04:25 | disposition home or self-care (01) ==
LOC: ER 22:48
DX: F03.90 Unspecified dementia, unspecified severity, without behavioral disturbance, psychotic disturbance, mood disturbance, and anxiety (principal); I10 Essential (primary) hypertension; Z88.5 Allergy status to narcotic agent; Z88.8 Allergy status to other drugs, medicaments and biological substances
CPT/HCPCS: 36415; 51702; 70450; 71045; 80048; 80076; 81003; 83605; 83735; 83880; 84145; 84484; 85025; 85610; 87040; 99284